=== PATIENT | male | born 1930 | race Caucasian/White ===

== ENCOUNTER 2018-10-22 15:20 | Inpatient (IN) | payer OTHER ==
--- NOTE | 2018-10-22 15:44 | PDOC ---
History of Present Illness - General Stated Complaint: UTI Time Seen by Provider: 10/22/18 15:34 History Source: Patient, Care Home Records - History of Present Illness Initial Comments: 10/22/18 15:38 Pt is an 88yo M with PMH of Prostate Ca s/p seeds, BPH, CHF, COPD, HTN, CKD, HLD , Anemia, Asbestosis, Hypothyroidism BIBA from [facility] for passing blood and clots in urine for one month. Pt states that he has been on antibiotics (Levaquin for one week) and still has blood in the urine. Finished abx 20 days ago. Has bladder incontinence. He was told to come to the ED for failing oral therapy IV antibiotics. He denies dysuria, frequency, flank pain, abdominal pain, lightheadedness, n/v/d, palpitations, chest pain, sob, fevers, chills. CT on 10/08/2018 shows hydronephrosis with bladder wall thickening (done at [facility]) [place] records show cultures growing Morganmorris sensitive to ertapenem, meropenem, gentamycin. PMD: Caty Uro: Ficazolla PMH: see hpi PSH: aortic valve repalcement, L knee surgery Meds: see med rec Allergies: PCN Past History - Past Medical History Allergies/Adverse Reactions: Allergies Allergy/AdvReac Type Severity Reaction Status Date / Time Penicillins Allergy Verified 10/22/18 19:28 Home Medications: Ambulatory Orders Acetaminophen [Tylenol -] 1,000 mg PO BID 10/22/18 Aspirin 81 mg PO DAILY 10/22/18 Ferrous Sulfate 325 mg PO BID 10/22/18 Furosemide [Lasix] 40 mg PO DAILY 10/22/18 Gabapentin 300 mg PO HS 10/22/18 Levothyroxine Sodium [Levo-T] 50 mcg PO DAILY 10/22/18 Loratadine 10 mg PO DAILY PRN 10/22/18 Mirabegron [Myrbetriq] 25 mg PO DAILY 10/22/18 Omeprazole 40 mg PO AM 10/22/18 Simethicone 180 mg PO TID 10/22/18 Tamsulosin HCl 0.4 mg PO DAILY 10/22/18 Review of Systems - Review of Systems Constitutional: No: Chills, Diaphoresis, Fever, Weakness HEENTM: No: Symptoms Reported Respiratory: No: Symptoms reported, Cough, Shortness of Breath Cardiac (ROS): No: Chest Pain ABD/GI: No: Constipated, Diarrhea, Nausea, Vomiting, Abdominal cramping : Yes: See HPI, Hematuria. No: Burning, Dysuria, Flank Pain Musculoskeletal: No: Symptoms Reported Integumentary: No: Symptoms Reported Neurological: No: Symptoms reported *Physical Exam - Physical Exam General Appearance: Yes: Nourished, Appropriately Dressed. No: Apparent Distress HEENT: positive: EOMI, OXANA, Normal ENT Inspection. negative: Pale Conjunctivae Neck: positive: Trachea midline, Supple. negative: Lymphadenopathy (R), Lymphadenopathy (L) Respiratory/Chest: positive: Lungs Clear, Normal Breath Sounds. negative: Crackles, Wheezing Cardiovascular: positive: Regular Rhythm, Regular Rate, S1, S2. negative: Edema , JVD, Murmur Vascular Pulses: Carotid (R): 2+, Carotid (L): 2+, Dorsalis-Pedis (R): 2+, Doralis-Pedis (L): 2+ Gastrointestinal/Abdominal: positive: Normal Bowel Sounds, Soft. negative: Tender Musculoskeletal: negative: CVA Tenderness Extremity: positive: Normal Capillary Refill. negative: Pedal Edema, Swelling, Calf Tenderness Integumentary: positive: Normal Color, Dry, Warm Neurologic: positive: mat inspector II-XII NML intact, Fully Oriented, Alert, Normal Mood/ Affect, Normal Response, Motor Strength 5/5 ED Treatment Course - LABORATORY CBC & Chemistry Diagram: 10/22/18 17:00 10/22/18 17:08 Medical Decision Making - Medical Decision Making 10/23/18 00:42 Pt is an 88yo M with PMH of Prostate Ca s/p seeds, BPH, CHF, COPD, HTN, CKD, HLD , Anemia, Asbestosis, Hypothyroidism BIBA from [facility] for passing blood and clots in urine for one month. Pt states that he has been on antibiotics (Levaquin for one week) and still has blood in the urine. Finished abx 20 days ago. Has bladder incontinence. He was told to come to the ED for failing oral therapy IV antibiotics. He denies dysuria, frequency, flank pain, abdominal pain, lightheadedness, n/v/d, palpitations, chest pain, sob, fevers, chills. CT done 10/08 shows bilateral hydronephrosis with bladder wall thickening. [place] records show cultures growing Morganelli sensitive to ertapenem, meropenem, gentamycin. Vitals: wnl PE benign ddx includes but not limited to cystitis, pyelo, nephrolithiasis, malignancy, electrolyte/metabolic abnormality, ischemia -ua, ucx -labs -bladder us ua positive for infection. pt has pcn allergies. will give ertapenem. will admit for uti. consult for dr. bertrand. 10/23/18 00:44 *DC/Admit/Observation/Transfer Diagnosis at time of Disposition: Hemorrhagic cystitis - Referrals - Patient Instructions - Post Discharge Activity
[2018-10-22 17:32] LABS: BASO % 0.9 % (0-2.0); EOS % 1.6 % (0-4.5); HEMATOCRIT 25.1 % (35.4-49); HEMOGLOBIN 8.3 GM/dL (11.7-16.9); LYMPH % 19.9 % (8-40); MCH 32.2 pg (25.7-33.7); MCHC 33.1 g/dl (32.0-35.9); MEAN CELL VOLUME 97.2 fl (80-96); MEAN PLT VOLUME 6.6 fl (7.5-11.1); MONO % 8.5 % (3.8-10.2); NEUT % 69.1 % (42.8-82.8); PLATELET COUNT 391 K/MM3 (134-434); RBC 2.58 M/mm3 (4.00-5.60); RDW 17.7 % (11.9-15.9); WHITE BLOOD COUNT 7.1 K/mm3 (4.0-10.0)
[2018-10-22 17:48] LABS: INR 1.2 (0.83-1.09); PROTHROMBIN TIME (PATIENT) 14.2 SEC (9.7-13.0)
[2018-10-22 17:49] VITALS: BMI 23.8
[2018-10-22 17:58] LABS: ALBUMIN 2.5 g/dl (3.4-5.0); ALK PHOS 100 U/L (45-117); ANION GAP 6 MMOL/L (8-16); BILIRUBIN,TOTAL 0.2 mg/dL (0.2-1); BLOOD UREA NITROGEN 22 mg/dL (7-18); CALCIUM 8.6 mg/dL (8.5-10.1); CHLORIDE 103 mmol/L (98-107); CO2 29 mmol/L (21-32); CREATININE 1.1 mg/dL (0.55-1.3); GLUCOSE,RANDOM 116 mg/dL (74-106); SGOT/AST 22 U/L (15-37); SGPT/ALT 15 U/L (13-61); SODIUM 138 mmol/L (136-145); TOT PROT 7.6 g/dl (6.4-8.2)
[2018-10-22 19:05] LABS: URINE APPEARANCE Turbid; URINE BILIRUBIN Negative (NEGATIVE); URINE COLOR Red; URINE GLUCOSE (UA) Negative (NEGATIVE); URINE KETONE Negative (NEGATIVE); URINE LEUK ESTERASE 1+ (NEGATIVE); URINE NITRITE Negative (NEGATIVE); URINE PROTEIN 3+ (NEGATIVE); URINE UROBILINOGEN 0.2 mg/dL (0.2-1.0)
[2018-10-22 19:09] LABS: URINE RBC >100 /hpf (0-4)
[2018-10-22 19:10] LABS: URINE BACTERIA MODERATE /hpf (NEGATIVE)
--- NOTE | 2018-10-22 19:21 | PDOC ---
Documentation entered by Stephanie Tariq SCRIBE, acting as scribe for Sergey Cornejo MD. Sergey Cornejo MD: This documentation has been prepared by the Marciano cox Adrianna, SCRIBE, under my direction and personally reviewed by me in its entirety. I confirm that the documentation accurately reflects all work, treatment, procedures, and medical decision making performed by me. Attending Attestation - Resident Resident Name: AnnOfe - ED Attending Attestation I have performed the following: I have examined & evaluated the patient, The case was reviewed & discussed with the resident, I agree w/resident's findings & plan, Exceptions are as noted - HPI HPI: The patient is an 88 year old male, with a significant PMH of prostate CA (s/p seeds), BPH, CHF, COPD, HTN, CKD, HLD, anemia, asbestosis, and hypothyroid, who presents to the emergency department today BIB from [facility] for MDR UTI. Patient notes he was passing blood and clots in his urine for the past month. He reports he was placed on Levaquin one month ago for one week, without any relief of his symptoms. Patient endorses associated urinary incontinence. He notes he was referred to come to the ED for IV antibiotics and cystoscopy. The patient denies chest pain, shortness of breath, headache and dizziness. Denies fever, chills, nausea, vomit, diarrhea and constipation. Denies dysuria, frequency, and flank pain. Allergies: Penicillins Past surgical history: Prostate seed implantations Social history: No reported PCP: Dr. Byrne Urologist: Dr. Diaz Bell 10/22/18 19:40 - Physicial Exam PE: 10/22/18 19:19 agree with resident exam - Medical Decision Making 18:26pm- paged Dr. Bell's call service, advised Dr. Vega is on- call, awaiting call back 18:40pm- resident spoke with Dr. Vega concerning patient's care 10/22/18 18:45 88yo M presents to the ED from [facility] 2/2 MDR UTI. Per review of provided records and conversation with [facility] staff, pt has Morganelli +UCx sensitive UTI Pt send in for IV abx
[2018-10-22] MEDS ORDERED: SODIUM CHLORIDE IVPB ONE ×2 (19:30→19:47)
[2018-10-22] MEDS ORDERED: GENTAMICIN IVPB ONE ×2 (19:30→19:47)
[2018-10-22] MEDS ORDERED: ERTAPENEM SODIUM 1 GM in SODIUM CHLORIDE 50 ML IVPB ONE (19:35)
--- NOTE | 2018-10-22 20:08 | PN ---
Teaching Attending Note Name of Resident: Carey Garg ATTENDING PHYSICIAN STATEMENT I saw and evaluated the patient. I reviewed the resident's note and discussed the case with the resident. I agree with the resident's findings and plan as documented. SUBJECTIVE: Patient is an 88 year old man with a PMH of prostate cancer (s/p seed implants) , BPH, CHF, COPD, HTN, CKD, HLD, anemia, asbestosis, Penicillin allergy and hypothyroid, who presents to the ER from [facility] passing blood and clots in his urine for the past month. Has had MDR UTI. He was placed on Levaquin one month ago for one week, without any relief of his symptoms. Patient has associated urinary incontinence. He notes he was referred to come to the ER for IV antibiotics and cystoscopy. The patient denies chest pain, shortness of breath, headache and dizziness. Denies fever, chills, nausea, vomit, diarrhea,constipation, dysuria or flank pain. OBJECTIVE: Alert Vital Signs Period Temp Pulse Resp BP Sys/Mathis Pulse Ox Last 24 Hr 98.1 F 82 17 113/53 97 HEENT: No Jaundice, eye redness or discharge, PERRLA, EOMI. Normocephalic, atraumatic. External ears are normal and hearing is grossly intact. No nasal discharge. Neck: Supple, nontender. No palpable adenopathy or thyromegaly. No JVD Chest: Good effort. Clear to auscultation and percussion. Heart: Regular. No S3, rub or murmur Abdomen: Not distended, soft, nontender and no HSM. No rebound or guarding. Normal bowel sounds. Ext: Peripheral pulses intact. No leg edema. Skin: Warm and dry. No petechiae or rash. Left leg ecchymosis. Neuro: Alert. Oriented x3. CN 2-12 grossly intact. Sensation grossly intact in all four extremities and DTR are symmetric. Psych: Appropriate mood and affect. Good insight. Current Medications Generic Name Dose Route Start Last Admin Trade Name Freq PRN Reason Stop Dose Admin Gentamicin Sulfate 330 mg/ 258.25 mls @ 100 mls/hr 10/22/18 19:47 Sodium Chloride IVPB 10/22/18 22:04 ONCE ONE Protocol Abnormal Lab Results 10/22/18 10/22/18 10/22/18 17:00 17:08 17:08 RBC 2.58 L Hgb 8.3 L Hct 25.1 L MCV 97.2 H RDW 17.7 H MPV 6.6 L PT with INR 14.20 H INR 1.20 H Anion Gap 6 L BUN 22 H Random Glucose 116 H Albumin 2.5 L Urine Protein Urine Blood Ur Leukocyte Esterase 10/22/18 17:25 RBC Hgb Hct MCV RDW MPV PT with INR INR Anion Gap BUN Random Glucose Albumin Urine Protein 3+ H Urine Blood 3+ H Ur Leukocyte Esterase 1+ H ASSESSMENT AND PLAN: 1. Hematuria/?UTI - Had a recent CT at [facility] showing unexplained hydroureteronephrosis but no identifiable cause for hematuria. Urine culture from 10/14/18 grew Morganella Morganii sensitive to Ertapenem. Treat with Ertapenem. Urology consult. Need to ascertain precise source of hematuria. NPO and IV fluids. Need kidney and bladder sonogram to investigate hematuria. 2. Hypoalbuminemia - Possibly due to combined effects of malnutrition, proteinuria and inflammation associated with comorbid chronic conditions. Will ensure adequate dietary protein intake and also consult orchestra conductor. 3. Low MCV Anemia - Do basic anemia work up including serial stool guaiacs, reticulocyte count and iron studies. Will strive to confirm iron deficiency SONDRA ; then give IV iron and possibly Procrit to preempt blood transfusion. 4. Hypertension - Restart outpatient antihypertensive drugs when clinically appropriate. Nonpharmacologic measures to control hypertension like weight loss , salt restriction and exercise discussed. 5. DVT prophylaxis - SCD, TEDs, Early ambulation. Start Lovenox 40 mg sq q 24 hours after procedure. 6. Advance directives - Full code
--- NOTE | 2018-10-22 21:19 | HP ---
CHIEF COMPLAINT: Gross Hematuria PCP: Dr Byrne HISTORY OF PRESENT ILLNESS: Pt is an 88 y/o gentleman with a significant past medical history of Prostate Cancer (diagnosed [id number]) treated w/ Seeds and Radiation ([facility] , Dr Virgen), BPH, Asbestosis (retired [employer]) CHF, COPD, HTN, HLD, CKD, hypothyroidism, and basal cell carcinoma on back who presented to [facility] due to continued gross hematuria. Pt endorses that he has been suffering from gross hematuria for approximately 1 month duration. Pt states he notices clots in his urine as well. Endorses he has experienced these symptoms in the distant past. Pt is a resident of [facility] in [place]. While at [facility], pt was also being treated with Levaquin for a UTI (UC 10/14/2018 reveals + Janine resistant to Levaquin.) Pt denies any chest pain, shortness of breath, nausea/vomiting/fevers /chills, or dysuria. Pt is incontinent of urine so cannot comment on frequency, urgency, or hesitancy. PMH as noted above Surg Hx- left knee replacement, AVR, Excision of basal cell on back. FH- Father pneumonia, Mother Scleroderma SocialHx- Denies tobacco or alcohol use Allergies: Penicillin ER course was notable for: (1) Urinalysis 3+ Blood (2) Administered Ertapenem and Gentamycin by ED HOME MEDICATIONS: REVIEW OF SYSTEMS CONSTITUTIONAL: Absent: fever, chills, diaphoresis, generalized weakness, malaise, loss of appetite, weight change HEENT: Absent: rhinorrhea, nasal congestion, throat pain, throat swelling, difficulty swallowing, mouth swelling, ear pain, eye pain, visual changes CARDIOVASCULAR: Absent: chest pain, syncope, palpitations, irregular heart rate, lightheadedness , peripheral edema RESPIRATORY: Absent: cough, shortness of breath, dyspnea with exertion, orthopnea, wheezing, stridor, hemoptysis GASTROINTESTINAL: Absent: abdominal pain, abdominal distension, nausea, vomiting, diarrhea, constipation, melena, hematochezia GENITOURINARY: PRESENT: dysuria, hematuria, MUSCULOSKELETAL: Absent: myalgia, arthralgia, joint swelling, back pain, neck pain SKIN: Absent: rash, itching, pallor HEMATOLOGIC/IMMUNOLOGIC: Absent: easy bleeding, easy bruising, lymphadenopathy, frequent infections ENDOCRINE: Absent: unexplained weight gain, unexplained weight loss, heat intolerance, cold intolerance NEUROLOGIC: Absent: headache, focal weakness or paresthesias, dizziness, unsteady gait, seizure, mental status changes, bladder or bowel incontinence PSYCHIATRIC: Absent: anxiety, depression, suicidal or homicidal ideation, hallucinations. PHYSICAL EXAMINATION Vital Signs - 24 hr 10/22/18 15:25 Temperature 98.1 F Pulse Rate 82 Respiratory 17 Rate Blood Pressure 113/53 L O2 Sat by Pulse 97 Oximetry (%) GENERAL: NAD HEAD: Normal with no signs of trauma. EYES: EOMI Sclera Clear EARS, NOSE, THROAT: MMM NECK: Normal range of motion, supple without lymphadenopathy, JVD, or masses. LUNGS: Crackles b/l bases HEART: FOREIGN LUSB and RUSB ABDOMEN: Soft No suprapubic tender. No CVA tenderness. No guarding or rigidity or rebound LOWER EXTREMITIES: No CCE. Echymosis left lower arce. Darkening of right 2nd and 3rd toenails 2/2 mechanical injury. Pulses 2+ NEUROLOGICAL: Cranial nerves II-XII intact. Normal speech. Normal gait. PSYCHIATRIC: Cooperative. Good eye contact. Appropriate mood and affect. SKIN: Warm, dry, normal turgor, no rashes or lesions noted, normal capillary refill. Laboratory Results - last 24 hr 10/22/18 10/22/18 10/22/18 17:00 17:08 17:08 WBC 7.1 RBC 2.58 L Hgb 8.3 L Hct 25.1 L MCV 97.2 H MCH 32.2 MCHC 33.1 RDW 17.7 H Plt Count 391 MPV 6.6 L Absolute Neuts (auto) 4.9 Neutrophils % 69.1 Lymphocytes % 19.9 Monocytes % 8.5 Eosinophils % 1.6 Basophils % 0.9 Nucleated RBC % 0 PT with INR 14.20 H INR 1.20 H Sodium 138 Potassium 4.0 Chloride 103 Carbon Dioxide 29 Anion Gap 6 L BUN 22 H Creatinine 1.1 Creat Clearance w eGFR 63.47 Random Glucose 116 H Calcium 8.6 Total Bilirubin 0.2 AST 22 ALT 15 Alkaline Phosphatase 100 Total Protein 7.6 Albumin 2.5 L Urine Color Urine Appearance Urine pH Ur Specific [place] Urine Protein Urine Glucose (UA) Urine Ketones Urine Blood Urine Nitrite Urine Bilirubin Urine Urobilinogen Ur Leukocyte Esterase Urine WBC (Auto) Urine RBC (Auto) U Epithel Cells (Auto) Urine Bacteria (Auto) Blood Type Antibody Screen 10/22/18 10/22/18 17:08 17:25 WBC RBC Hgb Hct MCV MCH MCHC RDW Plt Count MPV Absolute Neuts (auto) Neutrophils % Lymphocytes % Monocytes % Eosinophils % Basophils % Nucleated RBC % PT with INR INR Sodium Potassium Chloride Carbon Dioxide Anion Gap BUN Creatinine Creat Clearance w eGFR Random Glucose Calcium Total Bilirubin AST ALT Alkaline Phosphatase Total Protein Albumin Urine Color Red Urine Appearance Turbid Urine pH 6.0 Ur Specific [place] 1.020 Urine Protein 3+ H Urine Glucose (UA) Negative Urine Ketones Negative Urine Blood 3+ H Urine Nitrite Negative Urine Bilirubin Negative Urine Urobilinogen 0.2 Ur Leukocyte Esterase 1+ H Urine WBC (Auto) 5-10 Urine RBC (Auto) >100 U Epithel Cells (Auto) 2-5 Urine Bacteria (Auto) Moderate Blood Type A POSITIVE Antibody Screen Negative ASSESSMENT/PLAN: Pt is an 88 y/o gentleman with a significant past medical history of Prostate Cancer (diagnosed [phone]) treated w/ Seeds and Radiation ([facility] , Dr Virgen), BPH, Asbestosis (retired [employer]) CHF, COPD, HTN, HLD, CKD, hypothyroidism, and basal cell carcinoma on back who presented to [facility] due to continued gross hematuria. #Gross Hematuria -Urinalysis 3+ blood, also appearance of julianne blood in diaper and h/o clots in [place] -Urology on board. Plan for cystoscopy tomorrow. NPO after Midnight. - H/H 8.3/25.1. Will order iron studies. Administer I.V iron if needed. -Pelvic/Bladder Sono CTAP performed at [facility] this month. " Bilateral chronic hydroureteronephrosis, moderate on the right and left, down to the level of the bladder. Right ureter markedly dilated measuring 2.6 cm in widest diameter. No stones appreciated." #MDR UTI -Urine Culture 10/14/2018--> Morganella+ -Will continue on Ertapenem 500 mg daily in light of calculated CrCL of 21 according to [facility]. -ID Consult -UC pending #HTN Pt reportedly hypertensive but not on any antihypertensives medications per [place]. Pt relatively hypotensive. Continue to monitor and assess need for hypertensives. #COPD Per [facility] records, no COPD medication listed. Will monitor for signs and symptoms. #FEN LR@75cc/hr Monitor Electrolytes Low Sodium Diet #DVT ppx: SCDs in light of gross hematuria #Dispo: Med-Surg Visit type - Emergency Visit Emergency Visit: Yes ED Registration Date: 10/22/18 Care time: The patient presented to the Emergency Department on the above date and was hospitalized for further evaluation of their emergent condition. - New Patient This patient is new to me today: Yes Date on this admission: 10/23/18 - Critical Care Critical Care patient: No
[2018-10-22] MEDS ORDERED: LORATADINE 10 MG TABLET PO PRN (23:59)
[2018-10-23] MEDS: SIMETHICONE 80 MG TAB.CHEW (FP) PO SCH ×3 (05:52→21:53)
[2018-10-23] MEDS: PANTOPRAZOLE 40 MG TABLET (FP) PO SCH (06:05)
[2018-10-23] MEDS: LEVOTHYROXINE NA 50 MCG TABLET (FP) PO SCH (06:05)
[2018-10-23] MEDS: LACTATED RINGERS SOLUTION 1,000 ML/1,000 ML INFUS.BAG IV SCH (07:00)
[2018-10-23 07:24] LABS: EOS % 1.9 % (0-4.5); HEMATOCRIT 25.6 % (35.4-49); HEMOGLOBIN 8.4 GM/dL (11.7-16.9); LYMPH % 19.7 % (8-40); MCH 31.6 pg (25.7-33.7); MCHC 32.6 g/dl (32.0-35.9); MEAN PLT VOLUME 6.9 fl (7.5-11.1); NEUT % 69.4 % (42.8-82.8); PLATELET COUNT 393 K/MM3 (134-434); RBC 2.64 M/mm3 (4.00-5.60); RDW 18.1 % (11.9-15.9); WHITE BLOOD COUNT 6.7 K/mm3 (4.0-10.0)
[2018-10-23 07:37] LABS: INR 1.18 (0.83-1.09); PROTHROMBIN TIME (PATIENT) 13.9 SEC (9.7-13.0)
[2018-10-23 07:39] LABS: ACTIVATED PTT 35.7 SECONDS (25.2-36.5)
[2018-10-23 07:55] LABS: ALBUMIN 2.4 g/dl (3.4-5.0); ALK PHOS 90 U/L (45-117); ANION GAP 6 MMOL/L (8-16); BILIRUBIN,TOTAL 0.3 mg/dL (0.2-1); BLOOD UREA NITROGEN 22 mg/dL (7-18); CALCIUM 8.8 mg/dL (8.5-10.1); CHLORIDE 105 mmol/L (98-107); CO2 28 mmol/L (21-32); CREATININE 1.1 mg/dL (0.55-1.3); GLUCOSE,RANDOM 94 mg/dL (74-106); MAGNESIUM 1.6 mg/dL (1.8-2.4); PHOSPHOROUS 3.2 mg/dL (2.5-4.9); POTASSIUM 3.7 mmol/L (3.5-5.1); SGOT/AST 18 U/L (15-37); SGPT/ALT 14 U/L (13-61); SODIUM 139 mmol/L (136-145)
[2018-10-23] MEDS ORDERED: MAGNESIUM SULF 50% (8.12 MEQ/2 ML-1 GM VIAL) IVPB ONE (08:11)
[2018-10-23] MEDS ORDERED: PATIENT'S OWN MEDICATION (NON-FORMULARY) (Mirabegron [Myrbetriq] 25 MG) PO SCH (10:00)
[2018-10-23] MEDS: ACETAMINOPHEN 500 MG TABLET (FP) PO SCH ×2 (10:57→21:53)
[2018-10-23] MEDS: FERROUS SO4 325 MG TABLET (FP) PO SCH ×2 (10:58→21:53)
--- NOTE | 2018-10-23 11:24 | EKG ---
Test Reason : Blood Pressure : / mmHG Vent. Rate : 089 BPM Atrial Rate : 089 BPM P-R Int : 188 ms QRS Dur : 080 ms QT Int : 378 ms P-R-T Axes : 037 063 006 degrees QTc Int : 459 ms SINUS RHYTHM WITH PREMATURE ATRIAL COMPLEXES LOW VOLTAGE QRS BORDERLINE ECG NO PREVIOUS ECGS AVAILABLE Confirmed by MARIA ISABEL BOLAÑOS MD ([id number]) on 10/23/2018 11:24:31 AM Referred By: Confirmed By:MARIA ISABEL BOLAÑOS MD
--- NOTE | 2018-10-23 13:36 | PN ---
Physical Exam: SUBJECTIVE: Patient seen and examined. Pt. endorses resolving hematuria, states there is decreased pain on urination. OBJECTIVE: Vital Signs Period Temp Pulse Resp BP Sys/Mathis Pulse Ox Last 24 Hr 98 F-98.4 F 82-88 17-18 102-113/48-56 95-100 GENERAL: The patient is awake, alert, and fully oriented, in no acute distress. HEAD: Normal with no signs of trauma. EYES: Sclera anicteric, conjunctiva clear. ENT: Ears normal, nares patent,moist mucous membranes. LUNGS: Breath sounds equal, clear to auscultation bilaterally, no wheezes, no crackles, no accessory muscle use. HEART: Regular rate and rhythm, S1, S2 without murmur ABDOMEN: Soft, nontender, nondistended, normoactive bowel sounds, no guarding, no rebound EXTREMITIES: 2+ radial pulses, warm, no calf tenderness, well-perfused, no edema. NEUROLOGICAL: Normal speech, gait not observed. PSYCH: Normal mood, normal affect. SKIN: Warm, dry, normal turgor, no rashes or lesions noted Laboratory Results - last 24 hr 10/22/18 10/22/18 10/22/18 17:00 17:08 17:08 WBC 7.1 RBC 2.58 L Hgb 8.3 L Hct 25.1 L MCV 97.2 H MCH 32.2 MCHC 33.1 RDW 17.7 H Plt Count 391 MPV 6.6 L Absolute Neuts (auto) 4.9 Neutrophils % 69.1 Lymphocytes % 19.9 Monocytes % 8.5 Eosinophils % 1.6 Basophils % 0.9 Nucleated RBC % 0 Retic Count PT with INR 14.20 H INR 1.20 H PTT (Actin FS) Sodium 138 Potassium 4.0 Chloride 103 Carbon Dioxide 29 Anion Gap 6 L BUN 22 H Creatinine 1.1 Creat Clearance w eGFR 63.47 Random Glucose 116 H Calcium 8.6 Phosphorus Magnesium Ferritin 194.6 Total Bilirubin 0.2 AST 22 ALT 15 Alkaline Phosphatase 100 Total Protein 7.6 Albumin 2.5 L Urine Color Urine Appearance Urine pH Ur Specific [place] Urine Protein Urine Glucose (UA) Urine Ketones Urine Blood Urine Nitrite Urine Bilirubin Urine Urobilinogen Ur Leukocyte Esterase Urine WBC (Auto) Urine RBC (Auto) U Epithel Cells (Auto) Urine Bacteria (Auto) Blood Type Antibody Screen 10/22/18 10/22/18 10/23/18 17:08 17:25 06:30 WBC RBC Hgb Hct MCV MCH MCHC RDW Plt Count MPV Absolute Neuts (auto) Neutrophils % Lymphocytes % Monocytes % Eosinophils % Basophils % Nucleated RBC % Retic Count 3.69 H PT with INR INR PTT (Actin FS) Sodium Potassium Chloride Carbon Dioxide Anion Gap BUN Creatinine Creat Clearance w eGFR Random Glucose Calcium Phosphorus Magnesium Ferritin Total Bilirubin AST ALT Alkaline Phosphatase Total Protein Albumin Urine Color Red Urine Appearance Turbid Urine pH 6.0 Ur Specific [place] 1.020 Urine Protein 3+ H Urine Glucose (UA) Negative Urine Ketones Negative Urine Blood 3+ H Urine Nitrite Negative Urine Bilirubin Negative Urine Urobilinogen 0.2 Ur Leukocyte Esterase 1+ H Urine WBC (Auto) 5-10 Urine RBC (Auto) >100 U Epithel Cells (Auto) 2-5 Urine Bacteria (Auto) Moderate Blood Type A POSITIVE Antibody Screen Negative 10/23/18 10/23/18 10/23/18 06:30 06:30 06:30 WBC 6.7 RBC 2.64 L Hgb 8.4 L Hct 25.6 L MCV 97.0 H MCH 31.6 MCHC 32.6 RDW 18.1 H Plt Count 393 MPV 6.9 L Absolute Neuts (auto) 4.7 Neutrophils % 69.4 Lymphocytes % 19.7 Monocytes % 8.0 Eosinophils % 1.9 Basophils % 1.0 Nucleated RBC % 0 Retic Count PT with INR 13.90 H INR 1.18 H PTT (Actin FS) 35.7 Sodium 139 Potassium 3.7 Chloride 105 Carbon Dioxide 28 Anion Gap 6 L BUN 22 H Creatinine 1.1 Creat Clearance w eGFR 63.47 Random Glucose 94 Calcium 8.8 Phosphorus 3.2 Magnesium 1.6 L Ferritin Total Bilirubin 0.3 AST 18 ALT 14 Alkaline Phosphatase 90 Total Protein 7.0 Albumin 2.4 L Urine Color Urine Appearance Urine pH Ur Specific [place] Urine Protein Urine Glucose (UA) Urine Ketones Urine Blood Urine Nitrite Urine Bilirubin Urine Urobilinogen Ur Leukocyte Esterase Urine WBC (Auto) Urine RBC (Auto) U Epithel Cells (Auto) Urine Bacteria (Auto) Blood Type Antibody Screen 10/23/18 06:30 WBC RBC Hgb Hct MCV MCH MCHC RDW Plt Count MPV Absolute Neuts (auto) Neutrophils % Lymphocytes % Monocytes % Eosinophils % Basophils % Nucleated RBC % Retic Count PT with INR INR PTT (Actin FS) Sodium Potassium Chloride Carbon Dioxide Anion Gap BUN Creatinine Creat Clearance w eGFR Random Glucose Calcium Phosphorus Magnesium Ferritin Total Bilirubin AST ALT Alkaline Phosphatase Total Protein Albumin Urine Color Urine Appearance Urine pH Ur Specific [place] Urine Protein Urine Glucose (UA) Urine Ketones Urine Blood Urine Nitrite Urine Bilirubin Urine Urobilinogen Ur Leukocyte Esterase Urine WBC (Auto) Urine RBC (Auto) U Epithel Cells (Auto) Urine Bacteria (Auto) Blood Type A POSITIVE Antibody Screen Negative Active Medications Home Medications Medication Instructions Recorded Acetaminophen [Tylenol -] 1,000 mg PO BID 10/22/18 Aspirin 81 mg PO DAILY 10/22/18 Ferrous Sulfate 325 mg PO BID 10/22/18 Furosemide [Lasix] 40 mg PO DAILY 10/22/18 Gabapentin 300 mg PO HS 10/22/18 Levothyroxine Sodium [Levo-T] 50 mcg PO DAILY 10/22/18 Loratadine 10 mg PO DAILY PRN 10/22/18 Mirabegron [Myrbetriq] 25 mg PO DAILY 10/22/18 Omeprazole 40 mg PO AM 10/22/18 Simethicone 180 mg PO TID 10/22/18 Tamsulosin HCl 0.4 mg PO DAILY 10/22/18 [place]-3 Acid Ethyl Esters [Lovaza 1,000 mg PO DAILY 10/23/18 -] Current Medications Acetaminophen (Tylenol -) 1,000 mg PO BID [facility] Last Admin: 10/23/18 10:57 Dose: Not Given Ferrous Sulfate (Feosol -) 325 mg PO BID [facility] Last Admin: 10/23/18 10:58 Dose: Not Given Furosemide (Lasix -) 40 mg PO DAILY [facility] Gabapentin (Neurontin -) 300 mg PO HS [facility] Ertapenem 0.5 gm/ Sodium (Chloride) 50 mls @ 100 mls/hr IVPB DAILY [facility] Lactated Ringer's (Lactated Ringers Solution) 1,000 ml in 1,000 mls @ 42 mls/ hr IV ASDIR [facility] Last Admin: 10/23/18 07:00 Dose: 42 mls/hr Meropenem 1 gm/ Dextrose 100 mls @ 200 mls/hr IVPB Q8H-IV [facility] Levothyroxine Sodium (Synthroid -) 50 mcg PO DAILY@0700 [facility] Last Admin: 10/23/18 06:05 Dose: 50 mcg Loratadine (Claritin -) 10 mg PO DAILY PRN PRN Reason: ALLERGIES Non-Formulary Medication (Mirabegron [Myrbetriq]) 25 mg PO DAILY [facility] Pantoprazole Sodium (Protonix -) 40 mg PO AM [facility] Last Admin: 10/23/18 06:05 Dose: 40 mg Simethicone (Mylicon -) 160 mg PO TID [facility] Last Admin: 10/23/18 05:52 Dose: 160 mg Tamsulosin HCl (Flomax -) 0.4 mg PO DAILY@0830 [facility] ASSESSMENT/PLAN: Pt is an 88 y.o. M w/ PMHx. of Prostate Cancer (diagnosed [id number]) treated w/ Seeds and Radiation ([facility], Dr Virgen), BPH, Asbestosis (retired [employer]) CHF, COPD, HTN, HLD, CKD, hypothyroidism, and basal cell carcinoma on back who presented to [facility] due to continued gross hematuria. #Gross Hematuria Urinalysis 3+ blood, also appearance of julianne blood in diaper and h/o clots in [place] Urology on board. Plan for cystoscopy tomorrow. NPO after Midnight. H/H 8.3/25.1, trend Pelvic/Bladder US: CTAP performed at [facility] this month. " Bilateral chronic hydroureteronephrosis, moderate on the right and left, down to the level of the bladder. Right ureter markedly dilated measuring 2.6 cm in widest diameter. No stones appreciated." #MDR UTI Urine Culture 10/14/2018--> Morganella+ Will continue on Ertapenem 500 mg daily in light of calculated CrCL of 21 according to [facility]. ID Consult f/u [facility]. #FEN LR@75cc/hr Monitor Electrolytes Low Sodium Diet #DVT ppx: SCDs in light of gross hematuria #Dispo: Med-Surg Visit type - Emergency Visit Emergency Visit: Yes ED Registration Date: 10/22/18 Care time: The patient presented to the Emergency Department on the above date and was hospitalized for further evaluation of their emergent condition. - New Patient This patient is new to me today: Yes Date on this admission: 10/26/18 - Critical Care Critical Care patient: No - Discharge Referral Referred to [facility] No
--- NOTE | 2018-10-23 14:34 | CON.ID ---
Consult - Alcohol/Substance Use Hx Alcohol Use: No - Smoking History Smoking history: Never smoked Have you smoked in the past 12 months: No Home Medications - Allergies Allergies/Adverse Reactions: Allergies Allergy/AdvReac Type Severity Reaction Status Date / Time Penicillins Allergy Verified 10/22/18 19:28 - Home Medications Home Medications: Ambulatory Orders Acetaminophen [Tylenol -] 1,000 mg PO BID 10/22/18 Aspirin 81 mg PO DAILY 10/22/18 Ferrous Sulfate 325 mg PO BID 10/22/18 Furosemide [Lasix] 40 mg PO DAILY 10/22/18 Gabapentin 300 mg PO HS 10/22/18 Levothyroxine Sodium [Levo-T] 50 mcg PO DAILY 10/22/18 Loratadine 10 mg PO DAILY PRN 10/22/18 Mirabegron [Myrbetriq] 25 mg PO DAILY 10/22/18 Omeprazole 40 mg PO AM 10/22/18 Simethicone 180 mg PO TID 10/22/18 Tamsulosin HCl 0.4 mg PO DAILY 10/22/18 [place]-3 Acid Ethyl Esters [Lovaza -] 1,000 mg PO DAILY 10/23/18 Physical Exam Vital Signs: Vital Signs Temperature 97.9 F 10/23/18 14:06 Pulse Rate 79 10/23/18 14:06 Respiratory Rate 20 10/23/18 14:06 Blood Pressure 128/65 10/23/18 14:06 O2 Sat by Pulse Oximetry (%) 95 10/23/18 09:00 Labs: CBC, BMP 10/23/18 06:30 10/23/18 06:30
[2018-10-23] MEDS ORDERED: PT OWN MED DRAWER 7, Y5N ONE (15:08)
--- NOTE | 2018-10-23 16:25 | PN ---
Teaching Attending Note Name of Resident: Sander Xie ATTENDING PHYSICIAN STATEMENT I saw and evaluated the patient. I reviewed the resident's note and discussed the case with the resident. I agree with the resident's findings and plan as documented. SUBJECTIVE: Hematuria. No dysuria. No fever/chills. No nausea/vomiting. No abdominal/flank pain. OBJECTIVE: Afebrile, Hemodynamically Stable. Last Vital Signs Temp Pulse Resp BP Pulse Ox 97.9 F 79 20 128/65 95 10/23/18 14:06 10/23/18 14:06 10/23/18 14:06 10/23/18 14:06 10/23/18 09:00 HEENT - Atraumatic, Normocephalic. Heart - S1, S2, RRR Lungs - clear to auscultation Abdomen - Soft, non-tender. Bowel Sounds normal. Extremities - no edema. Laboratory Results - last 24 hr 10/22/18 10/22/18 10/22/18 17:00 17:08 17:08 WBC 7.1 RBC 2.58 L Hgb 8.3 L Hct 25.1 L MCV 97.2 H MCH 32.2 MCHC 33.1 RDW 17.7 H Plt Count 391 MPV 6.6 L Absolute Neuts (auto) 4.9 Neutrophils % 69.1 Lymphocytes % 19.9 Monocytes % 8.5 Eosinophils % 1.6 Basophils % 0.9 Nucleated RBC % 0 Retic Count PT with INR 14.20 H INR 1.20 H PTT (Actin FS) Sodium 138 Potassium 4.0 Chloride 103 Carbon Dioxide 29 Anion Gap 6 L BUN 22 H Creatinine 1.1 Creat Clearance w eGFR 63.47 Random Glucose 116 H Calcium 8.6 Phosphorus Magnesium Ferritin 194.6 Total Bilirubin 0.2 AST 22 ALT 15 Alkaline Phosphatase 100 Total Protein 7.6 Albumin 2.5 L Urine Color Urine Appearance Urine pH Ur Specific [place] Urine Protein Urine Glucose (UA) Urine Ketones Urine Blood Urine Nitrite Urine Bilirubin Urine Urobilinogen Ur Leukocyte Esterase Urine WBC (Auto) Urine RBC (Auto) U Epithel Cells (Auto) Urine Bacteria (Auto) Blood Type Antibody Screen 10/22/18 10/22/18 10/23/18 17:08 17:25 06:30 WBC RBC Hgb Hct MCV MCH MCHC RDW Plt Count MPV Absolute Neuts (auto) Neutrophils % Lymphocytes % Monocytes % Eosinophils % Basophils % Nucleated RBC % Retic Count 3.69 H PT with INR INR PTT (Actin FS) Sodium Potassium Chloride Carbon Dioxide Anion Gap BUN Creatinine Creat Clearance w eGFR Random Glucose Calcium Phosphorus Magnesium Ferritin Total Bilirubin AST ALT Alkaline Phosphatase Total Protein Albumin Urine Color Red Urine Appearance Turbid Urine pH 6.0 Ur Specific [place] 1.020 Urine Protein 3+ H Urine Glucose (UA) Negative Urine Ketones Negative Urine Blood 3+ H Urine Nitrite Negative Urine Bilirubin Negative Urine Urobilinogen 0.2 Ur Leukocyte Esterase 1+ H Urine WBC (Auto) 5-10 Urine RBC (Auto) >100 U Epithel Cells (Auto) 2-5 Urine Bacteria (Auto) Moderate Blood Type A POSITIVE Antibody Screen Negative 10/23/18 10/23/18 10/23/18 06:30 06:30 06:30 WBC 6.7 RBC 2.64 L Hgb 8.4 L Hct 25.6 L MCV 97.0 H MCH 31.6 MCHC 32.6 RDW 18.1 H Plt Count 393 MPV 6.9 L Absolute Neuts (auto) 4.7 Neutrophils % 69.4 Lymphocytes % 19.7 Monocytes % 8.0 Eosinophils % 1.9 Basophils % 1.0 Nucleated RBC % 0 Retic Count PT with INR 13.90 H INR 1.18 H PTT (Actin FS) 35.7 Sodium 139 Potassium 3.7 Chloride 105 Carbon Dioxide 28 Anion Gap 6 L BUN 22 H Creatinine 1.1 Creat Clearance w eGFR 63.47 Random Glucose 94 Calcium 8.8 Phosphorus 3.2 Magnesium 1.6 L Ferritin Total Bilirubin 0.3 AST 18 ALT 14 Alkaline Phosphatase 90 Total Protein 7.0 Albumin 2.4 L Urine Color Urine Appearance Urine pH Ur Specific [place] Urine Protein Urine Glucose (UA) Urine Ketones Urine Blood Urine Nitrite Urine Bilirubin Urine Urobilinogen Ur Leukocyte Esterase Urine WBC (Auto) Urine RBC (Auto) U Epithel Cells (Auto) Urine Bacteria (Auto) Blood Type Antibody Screen 10/23/18 06:30 WBC RBC Hgb Hct MCV MCH MCHC RDW Plt Count MPV Absolute Neuts (auto) Neutrophils % Lymphocytes % Monocytes % Eosinophils % Basophils % Nucleated RBC % Retic Count PT with INR INR PTT (Actin FS) Sodium Potassium Chloride Carbon Dioxide Anion Gap BUN Creatinine Creat Clearance w eGFR Random Glucose Calcium Phosphorus Magnesium Ferritin Total Bilirubin AST ALT Alkaline Phosphatase Total Protein Albumin Urine Color Urine Appearance Urine pH Ur Specific [place] Urine Protein Urine Glucose (UA) Urine Ketones Urine Blood Urine Nitrite Urine Bilirubin Urine Urobilinogen Ur Leukocyte Esterase Urine WBC (Auto) Urine RBC (Auto) U Epithel Cells (Auto) Urine Bacteria (Auto) Blood Type A POSITIVE Antibody Screen Negative Current Medications Generic Name Dose Route Start Last Admin Trade Name Freq PRN Reason Stop Dose Admin Acetaminophen 1,000 mg 10/23/18 10:00 10/23/18 10:57 Tylenol - PO Not Given BID [facility] Ferrous Sulfate 325 mg 10/23/18 10:00 10/23/18 10:58 Feosol - PO Not Given BID [facility] Furosemide 40 mg 10/23/18 10:00 Lasix - PO DAILY [facility] Gabapentin 300 mg 10/23/18 22:00 Neurontin - PO HS [facility] Ertapenem 0.5 gm/ Sodium 50 mls @ 100 mls/hr 10/23/18 20:00 Chloride IVPB DAILY [facility] Lactated Ringer's 1,000 ml in 1,000 mls @ 42 mls/hr 10/23/18 06:45 10/23/18 07:00 Lactated Ringers Solution IV 42 mls/hr ASDIR [facility] Administration Meropenem 1 gm/ Dextrose 100 mls @ 200 mls/hr 10/23/18 18:00 IVPB Q8H-IV [facility] Levothyroxine Sodium 50 mcg 10/23/18 07:00 10/23/18 06:05 Synthroid - PO 50 mcg DAILY@0700 [facility] Administration Loratadine 10 mg 10/22/18 23:59 Claritin - PO DAILY PRN ALLERGIES Non-Formulary Medication 25 mg 10/23/18 10:00 Mirabegron [Myrbetriq] PO DAILY [facility] Pantoprazole Sodium 40 mg 10/23/18 07:00 10/23/18 06:05 Protonix - PO 40 mg AM [facility] Administration Simethicone 160 mg 10/23/18 06:00 10/23/18 05:52 Mylicon - PO 160 mg TID [facility] Administration Tamsulosin HCl 0.4 mg 10/23/18 08:30 Flomax - PO DAILY@0830 [facility] Home Medications Medication Instructions Recorded Acetaminophen [Tylenol -] 1,000 mg PO BID 10/22/18 Aspirin 81 mg PO DAILY 10/22/18 Ferrous Sulfate 325 mg PO BID 10/22/18 Furosemide [Lasix] 40 mg PO DAILY 10/22/18 Gabapentin 300 mg PO HS 10/22/18 Levothyroxine Sodium [Levo-T] 50 mcg PO DAILY 10/22/18 Loratadine 10 mg PO DAILY PRN 10/22/18 Mirabegron [Myrbetriq] 25 mg PO DAILY 10/22/18 Omeprazole 40 mg PO AM 10/22/18 Simethicone 180 mg PO TID 10/22/18 Tamsulosin HCl 0.4 mg PO DAILY 10/22/18 [place]-3 Acid Ethyl Esters [Lovaza 1,000 mg PO DAILY 10/23/18 -] ASSESSMENT AND PLAN: 88 year old male with Prostate Cancer s/p RTx with Seeds, BPH, GERD, Asbestosis , COPD, HTN, HLD, Hypothyroidism, BCC on Back, CHF, urinary incontinence, presented with 1 month history of gross hematuria. 1. Anemia ? Baseline H/H ? Acute on Chronic Blood Loss secondary to Hematuria H/H 8.10/22.6 - will monitor. MCV 97 - will send Anemia work-up. Already on Iron Supplementation. CTAP [facility] - Bilateral chronic hydroureteronephrosis, moderate on the right and left, down to the level of the bladder. Right ureter markedly dilated measuring 2.6 cm in widest diameter. No stones appreciated. Bladder US - large post-void residual. Urology eval for Cystoscopy Hx BPH - Continue Tamsulosin, Myrbetriq 2. UTI Prior Urine Cx - Morganella Continue Ertapenem (PCN Allergy), pending Urine Cx results. ID Consulted. 3. HTN - not on medications - BP at target. 4. Hx COPD - no evidence of exacerbation. 5. Hypomagnesemia - repleted. 6. Chronic CHF (?diastolic versus systolic, no Echo at [facility]) - normally on Lasix. 7. Hypothyroidism - continue Levothyroxine. 8. GERD - Continue PPI DVT Px - SCDs (no Heparin given Hematuria).
--- NOTE | 2018-10-23 17:43 | CON.GU ---
Consult Consult Specialty:: Referred by:: medicine Reason for Consultation:: hematuria - History of Present Illness Chief Complaint: hematuria,. UTI History of Present Illness: 88 year old male who see Dr. Bell in the office who was undergonig a work up for hematuria and was found to have a multi drug resistant UTI. The [facility] sent the patient to [facility] and he was admitted. He is comfortable and voiding. - History Source History Provided By: Patient Limitations to Obtaining History: No Limitations - Past Medical History Renal/: Yes: BPH, Hematuria, UTI - Alcohol/Substance Use Hx Alcohol Use: No - Smoking History Smoking history: Never smoked Have you smoked in the past 12 months: No Home Medications - Allergies Allergies/Adverse Reactions: Allergies Allergy/AdvReac Type Severity Reaction Status Date / Time Penicillins Allergy Verified 10/22/18 19:28 - Home Medications Home Medications: Ambulatory Orders Acetaminophen [Tylenol -] 1,000 mg PO BID 10/22/18 Aspirin 81 mg PO DAILY 10/22/18 Ferrous Sulfate 325 mg PO BID 10/22/18 Furosemide [Lasix] 40 mg PO DAILY 10/22/18 Gabapentin 300 mg PO HS 10/22/18 Levothyroxine Sodium [Levo-T] 50 mcg PO DAILY 10/22/18 Loratadine 10 mg PO DAILY PRN 10/22/18 Mirabegron [Myrbetriq] 25 mg PO DAILY 10/22/18 Omeprazole 40 mg PO AM 10/22/18 Simethicone 180 mg PO TID 10/22/18 Tamsulosin HCl 0.4 mg PO DAILY 10/22/18 [place]-3 Acid Ethyl Esters [Lovaza -] 1,000 mg PO DAILY 10/23/18 Review of Systems - Review of Systems Genitourinary: reports: Dysuria, Hematuria Physical Exam- Vital Signs: Vital Signs Temperature 97.9 F 10/23/18 14:06 Pulse Rate 79 10/23/18 14:06 Respiratory Rate 20 10/23/18 14:06 Blood Pressure 128/65 10/23/18 14:06 O2 Sat by Pulse Oximetry (%) 95 10/23/18 09:00 Constitutional: Yes: Well Nourished, No Distress, Calm Renal/: Yes: Hematuria. No: Bladder Distention, CVA Tenderness - Left, CVA Tenderness - Right, Linder Present Labs: CBC, BMP 10/23/18 06:30 10/23/18 06:30 Problem List - Problems (1) Hemorrhagic cystitis Assessment/Plan: patient is voiding and hematuria is resolving. patient needs to have urine clear prior to a safe cystoscopy. ok to discharge and follow up in office or hold until next week for cystoscopy if needed. Code(s): N30.91 - CYSTITIS, UNSPECIFIED WITH HEMATURIA
[2018-10-23] MEDS: TAMSULOSIN HCL 0.4 MG CAP PO SCH (17:50)
[2018-10-23] MEDS ORDERED: MEROPENEM 1 GM VIAL (RESTRICTED TO ID) IVPB ONE (17:55)
[2018-10-23] MEDS ORDERED: DEXTROSE 5%-WATER 100 ML IVPB ONE (17:56)
[2018-10-23] MEDS: MEROPENEM 1 GM in DEXTROSE 5%-WATER 100 ML IVPB SCH (17:57)
[2018-10-23] MEDS: FUROSEMIDE 40 MG TABLET (FP) PO SCH (18:03)
[2018-10-23] MEDS ORDERED: ERTAPENEM SODIUM 0.5 GM in SODIUM CHLORIDE 50 ML IVPB SCH (20:00)
[2018-10-23] MEDS: GABAPENTIN 300 MG CAPSULE (FP) PO SCH (21:53)
[2018-10-24] MEDS ORDERED: DEXTROSE 5%-WATER 100 ML IVPB ONE ×3 (01:46→18:12)
[2018-10-24] MEDS ORDERED: MEROPENEM 1 GM VIAL (RESTRICTED TO ID) IVPB ONE ×3 (01:46→18:11)
[2018-10-24] MEDS: MEROPENEM 1 GM in DEXTROSE 5%-WATER 100 ML IVPB SCH ×3 (01:50→18:15)
[2018-10-24 04:11] LABS: SERUM IRON SATURATION 14 % (15-55); TOTAL IRON BINDING CAPACITY 247 ug/dL (250-450); UIBC 212 ug/dL (111-343)
[2018-10-24] MEDS: SIMETHICONE 80 MG TAB.CHEW (FP) PO SCH ×3 (05:58→22:07)
[2018-10-24] MEDS: LACTATED RINGERS SOLUTION 1,000 ML/1,000 ML INFUS.BAG IV SCH (06:01)
[2018-10-24] MEDS: LEVOTHYROXINE NA 50 MCG TABLET (FP) PO SCH (06:01)
[2018-10-24] MEDS: PANTOPRAZOLE 40 MG TABLET (FP) PO SCH (06:05)
[2018-10-24] MEDS: FERROUS SO4 325 MG TABLET (FP) PO SCH ×2 (10:35→22:07)
[2018-10-24 10:36] LABS: BASO % 0.9 % (0-2.0); HEMOGLOBIN 8.7 GM/dL (11.7-16.9); LYMPH % 14.7 % (8-40); MCH 32.4 pg (25.7-33.7); MCHC 33.6 g/dl (32.0-35.9); MEAN CELL VOLUME 96.6 fl (80-96); MEAN PLT VOLUME 6.7 fl (7.5-11.1); MONO % 8.9 % (3.8-10.2); NEUT % 73.5 % (42.8-82.8); PLATELET COUNT 397 K/MM3 (134-434); RDW 18.1 % (11.9-15.9); WHITE BLOOD COUNT 6.2 K/mm3 (4.0-10.0)
[2018-10-24] MEDS: TAMSULOSIN HCL 0.4 MG CAP PO SCH (10:36)
[2018-10-24] MEDS: FUROSEMIDE 40 MG TABLET (FP) PO SCH (10:36)
[2018-10-24] MEDS: ACETAMINOPHEN 500 MG TABLET (FP) PO SCH ×2 (10:37→22:07)
[2018-10-24 11:08] LABS: ANION GAP 5 MMOL/L (8-16); BLOOD UREA NITROGEN 17 mg/dL (7-18); CALCIUM 8.6 mg/dL (8.5-10.1); CHLORIDE 102 mmol/L (98-107); CO2 29 mmol/L (21-32); CREATININE 1.1 mg/dL (0.55-1.3); GLUCOSE,RANDOM 123 mg/dL (74-106); MAGNESIUM 2.2 mg/dL (1.8-2.4); POTASSIUM 4.2 mmol/L (3.5-5.1); SODIUM 136 mmol/L (136-145)
--- NOTE | 2018-10-24 12:16 | DS ---
Physical Exam: SUBJECTIVE: Patient seen and examined at bedside. states that he still has hematuria that has improved. Denies any pain OBJECTIVE: Vital Signs Period Temp Pulse Resp BP Sys/Mathis Pulse Ox Last 24 Hr 97.8 F-98.2 F 69-83 18-20 111-130/58-66 94-94 PHYSICAL EXAM GENERAL: A&Ox3, no acute distress EYES: PERRLA, EOMI ENT: Moist mucus membranes NECK: No JVD LUNGS: CTA, no wheezes HEART: RRR, no murmurs ABDOMEN: Soft, nontender, BS present MUSCULOSKELETAL: No CVA Tenderness EXTREMITIES: 2+ pulses, no edema. NEUROLOGICAL: Cranial nerves II-XII intact. LABS Laboratory Results - last 24 hr 10/22/18 10/23/18 10/24/18 17:00 06:30 10:15 WBC 6.2 RBC 2.70 L Hgb 8.7 L Hct 26.0 L MCV 96.6 H MCH 32.4 MCHC 33.6 RDW 18.1 H Plt Count 397 MPV 6.7 L Absolute Neuts (auto) 4.5 Neutrophils % 73.5 Lymphocytes % 14.7 D Monocytes % 8.9 Eosinophils % 2.0 Basophils % 0.9 Nucleated RBC % 0 Sodium 139 Potassium 3.7 Chloride 105 Carbon Dioxide 28 Anion Gap 6 L BUN 22 H Creatinine 1.1 Creat Clearance w eGFR 63.47 Random Glucose 94 Calcium 8.8 Phosphorus 3.2 Magnesium 1.6 L Iron 35 L TIBC 247 L Iron Saturation 14 L Ferritin 184.7 Total Bilirubin 0.3 AST 18 ALT 14 Alkaline Phosphatase 90 Total Protein 7.0 Albumin 2.4 L Vitamin B12 530 Serum Folate 7 10/24/18 10:15 WBC RBC Hgb Hct MCV MCH MCHC RDW Plt Count MPV Absolute Neuts (auto) Neutrophils % Lymphocytes % Monocytes % Eosinophils % Basophils % Nucleated RBC % Sodium 136 Potassium 4.2 Chloride 102 Carbon Dioxide 29 Anion Gap 5 L BUN 17 Creatinine 1.1 Creat Clearance w eGFR 63.47 Random Glucose 123 H Calcium 8.6 Phosphorus Magnesium 2.2 Iron TIBC Iron Saturation Ferritin Total Bilirubin AST ALT Alkaline Phosphatase Total Protein Albumin Vitamin B12 Serum Folate HOSPITAL COURSE: Date of Admission:10/22/18 Date of Discharge: 10/24/18 88 year old male with a significant past medical history of Prostate Cancer ( diagnosed [id number]) treated w/ Seeds and Radiation ([facility], Dr Virgen), BPH, Asbestosis (retired [employer]) CHF, COPD, HTN, HLD, CKD, hypothyroidism, and basal cell carcinoma on back who presented to [facility] due to continued gross hematuria with clots for 1 month, sent by urology (dr. callejas ). Endorses he has experienced these symptoms in the distant past. Pt is a resident of [facility] in [place]. While at [facility], pt was also being treated with Levaquin for a UTI ( 10/14/2018 reveals + Janine resistant to Levaquin.) He was admitted for the treatment of UTI and hematuria. Urology that was consulted recommended DC if Hgb stable for outpatient followup. Patient was treated with ertapenem and meropenem in the hospital and discharged home on ciprofloxacin for 3 days due to a stable hemoglobin with recommendations to follow with urology in 1 week. Minutes to complete discharge: 38 Discharge Summary Reason For Visit: MULTIPLE DRUG RESUSTANT [employer]ISM MDRO Current Active Problems Hemorrhagic cystitis (Acute) Condition: Improved - Instructions Diet, Activity, Other Instructions: You were admitted to the hospital for the treatment of hematuria and urinary tract infection. Your blood counts are stable. Medical recommendations: Please take ciprofloxacin 500mg twice a day for 3 more days Please take ferrous sulfate 325mg twice a day Referrals: Please see your primary care physician within 1 week of discharge Please make an appointment with the urologist within 1 week of discharge If you experience any fevers, chills, nausea, vomiting, diarrhea, severe weakness, chest pain or shortness of breath Referrals: Diaz Callejas MD [Staff Physician] - Disposition: [facility] - Home Medications Comprehensive Discharge Medication List: Ambulatory Orders Acetaminophen [Tylenol .Extra-Strength -] 1,000 mg PO BID 10/22/18 Aspirin 81 mg PO DAILY 10/22/18 Ferrous Sulfate 325 mg PO BID 10/22/18 Furosemide [Lasix] 40 mg PO DAILY 10/22/18 Gabapentin 300 mg PO HS 10/22/18 Levothyroxine Sodium [Levo-T] 50 mcg PO DAILY 10/22/18 Loratadine 10 mg PO DAILY PRN 10/22/18 Mirabegron [Myrbetriq] 25 mg PO DAILY 10/22/18 Omeprazole 40 mg PO AM 10/22/18 Simethicone 180 mg PO TID 10/22/18 Tamsulosin HCl 0.4 mg PO DAILY 10/22/18 [place]-3 Acid Ethyl Esters [Lovaza -] 1,000 mg PO DAILY 10/23/18 Ciprofloxacin [Cipro -] 500 mg PO Q12H #6 tablet 10/24/18 This patient is new to me today: No Emergency Visit: No Critical Care patient: No - Discharge Referral [facility] No
--- NOTE | 2018-10-24 14:06 | PN ---
Teaching Attending Note Name of Resident: Diaz Collier ATTENDING PHYSICIAN STATEMENT I saw and evaluated the patient. I reviewed the resident's note and discussed the case with the resident. I agree with the resident's findings and plan as documented. SUBJECTIVE: Hematuria. No dysuria. No fever/chills. No nausea/vomiting. No abdominal/flank pain. OBJECTIVE: Afebrile, Hemodynamically Stable. Last Vital Signs Temp Pulse Resp BP Pulse Ox 97.8 F 73 20 111/60 94 L 10/24/18 06:17 10/24/18 06:17 10/24/18 09:00 10/24/18 06:17 10/24/18 09:00 Heart - S1, S2, RRR Lungs - clear to auscultation Abdomen - Soft, non-tender. Bowel Sounds normal. Extremities - no edema. Laboratory Results - last 24 hr 10/22/18 10/23/18 10/24/18 17:00 06:30 10:15 WBC 6.2 RBC 2.70 L Hgb 8.7 L Hct 26.0 L MCV 96.6 H MCH 32.4 MCHC 33.6 RDW 18.1 H Plt Count 397 MPV 6.7 L Absolute Neuts (auto) 4.5 Neutrophils % 73.5 Lymphocytes % 14.7 D Monocytes % 8.9 Eosinophils % 2.0 Basophils % 0.9 Nucleated RBC % 0 Sodium 139 Potassium 3.7 Chloride 105 Carbon Dioxide 28 Anion Gap 6 L BUN 22 H Creatinine 1.1 Creat Clearance w eGFR 63.47 Random Glucose 94 Calcium 8.8 Phosphorus 3.2 Magnesium 1.6 L Iron 35 L TIBC 247 L Iron Saturation 14 L Ferritin 184.7 Total Bilirubin 0.3 AST 18 ALT 14 Alkaline Phosphatase 90 Total Protein 7.0 Albumin 2.4 L Vitamin B12 530 Serum Folate 7 10/24/18 10:15 WBC RBC Hgb Hct MCV MCH MCHC RDW Plt Count MPV Absolute Neuts (auto) Neutrophils % Lymphocytes % Monocytes % Eosinophils % Basophils % Nucleated RBC % Sodium 136 Potassium 4.2 Chloride 102 Carbon Dioxide 29 Anion Gap 5 L BUN 17 Creatinine 1.1 Creat Clearance w eGFR 63.47 Random Glucose 123 H Calcium 8.6 Phosphorus Magnesium 2.2 Iron TIBC Iron Saturation Ferritin Total Bilirubin AST ALT Alkaline Phosphatase Total Protein Albumin Vitamin B12 Serum Folate Current Medications Generic Name Dose Route Start Last Admin Trade Name Freq PRN Reason Stop Dose Admin Acetaminophen 1,000 mg 10/23/18 10:00 10/24/18 10:37 Tylenol - PO Not Given BID [facility] Ferrous Sulfate 325 mg 10/23/18 10:00 10/24/18 10:35 Feosol - PO 325 mg BID MARILIN Administration Furosemide 40 mg 10/23/18 10:00 10/24/18 10:36 Lasix - PO 40 mg DAILY MARILIN Administration Gabapentin 300 mg 10/23/18 22:00 10/23/18 21:53 Neurontin - PO 300 mg HS MARILIN Administration Lactated Ringer's 1,000 ml in 1,000 mls @ 42 mls/hr 10/23/18 06:45 10/24/18 06:01 Lactated Ringers Solution IV 42 mls/hr ASDIR MARILIN Administration Meropenem 1 gm/ Dextrose 100 mls @ 200 mls/hr 10/23/18 18:00 10/24/18 10:34 IVPB 200 mls/hr Q8H-IV MARILIN Administration Levothyroxine Sodium 50 mcg 10/23/18 07:00 10/24/18 06:01 Synthroid - PO 50 mcg DAILY@0700 MARILIN Administration Loratadine 10 mg 10/22/18 23:59 Claritin - PO DAILY PRN ALLERGIES Non-Formulary Medication 25 mg 10/23/18 10:00 Mirabegron [Myrbetriq] PO DAILY [facility] Pantoprazole Sodium 40 mg 10/23/18 07:00 10/24/18 06:05 Protonix - PO 40 mg AM MARILIN Administration Simethicone 160 mg 10/23/18 06:00 10/24/18 05:58 Mylicon - PO 160 mg TID MARILIN Administration Tamsulosin HCl 0.4 mg 10/23/18 08:30 10/24/18 10:36 Flomax - PO 0.4 mg DAILY@0830 MARILIN Administration ASSESSMENT AND PLAN: 88 year old male with Prostate Cancer s/p RTx with Seeds, BPH, GERD, Asbestosis , COPD, HTN, HLD, Hypothyroidism, BCC on Back, CHF, urinary incontinence, presented with 1 month history of gross hematuria. 1. 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 B12 - 530, Folate 7, Iron Sat 14, Ferritin 184 CTAP [facility] - Bilateral chronic hydroureteronephrosis, moderate on the right and left, down to the level of the bladder. Right ureter markedly dilated measuring 2.6 cm in widest diameter. No stones appreciated. Bladder US - large post-void residual. Urology evaluated - recommend discharge with outpatient office follow up next week for cystoscopy. Hx BPH - Continue Tamsulosin, Myrbetriq Current Urine Cx < 100,000 CFU/ml Empirically given Ertapenem (PCN Allergy) due to prior Morganella infection - will discharge with 3 additional days of Ciprofloxacin to complete 5 day empiric Abx course. Afebrile, Hemodynamically Stable. 2. HTN - not on medications - BP at target. 3. Hx COPD - no evidence of exacerbation. 4. Hypomagnesemia - repleted. 5. Chronic CHF (?diastolic versus systolic, no Echo at [facility]) - normally on Lasix. 6. Hypothyroidism - continue Levothyroxine. 7. GERD - Continue PPI DVT Px - SCDs (no Heparin given Hematuria). Medically and Hemodynamically Stable for transfer to [place] with out-patient Urology follow up next week for cystoscopy. DNR/DNI
--- NOTE | 2018-10-24 17:48 | PN ---
Progress Note, Physician History of Present Illness: Pt seen and examined. Events noted, labs reviewed. Pt states he feels well, remains afebrile. Without specific complaints. - Current Medication List Current Medications: Active Medications Acetaminophen (Tylenol -) 1,000 mg PO BID [facility] Last Admin: 10/24/18 10:37 Dose: Not Given Ferrous Sulfate (Feosol -) 325 mg PO BID [facility] Last Admin: 10/24/18 10:35 Dose: 325 mg Furosemide (Lasix -) 40 mg PO DAILY [facility] Last Admin: 10/24/18 10:36 Dose: 40 mg Gabapentin (Neurontin -) 300 mg PO HS [facility] Last Admin: 10/23/18 21:53 Dose: 300 mg Lactated Ringer's (Lactated Ringers Solution) 1,000 ml in 1,000 mls @ 42 mls/ hr IV ASDIR [facility] Last Admin: 10/24/18 06:01 Dose: 42 mls/hr Meropenem 1 gm/ Dextrose 100 mls @ 200 mls/hr IVPB Q8H-IV [facility] Last Admin: 10/24/18 10:34 Dose: 200 mls/hr Levothyroxine Sodium (Synthroid -) 50 mcg PO DAILY@0700 [facility] Last Admin: 10/24/18 06:01 Dose: 50 mcg Loratadine (Claritin -) 10 mg PO DAILY PRN PRN Reason: ALLERGIES Non-Formulary Medication (Mirabegron [Myrbetriq]) 25 mg PO DAILY [facility] Pantoprazole Sodium (Protonix -) 40 mg PO AM [facility] Last Admin: 10/24/18 06:05 Dose: 40 mg Simethicone (Mylicon -) 160 mg PO TID [facility] Last Admin: 10/24/18 15:14 Dose: 160 mg Tamsulosin HCl (Flomax -) 0.4 mg PO DAILY@0830 [facility] Last Admin: 10/24/18 10:36 Dose: 0.4 mg - Objective Vital Signs: Vital Signs Temperature 97.9 F 10/24/18 17:17 Pulse Rate 92 H 10/24/18 17:17 Respiratory Rate 20 10/24/18 17:17 Blood Pressure 114/60 10/24/18 17:17 O2 Sat by Pulse Oximetry (%) 94 L 10/24/18 09:00 Constitutional: Yes: No Distress, Calm Cardiovascular: Yes: Regular Rate and Rhythm Respiratory: Yes: Regular Gastrointestinal: Yes: Normal Bowel Sounds, Soft Extremities: Yes: WNL Integumentary: Yes: WNL Neurological: Yes: Alert Labs: CBC, BMP 10/24/18 10:15 10/24/18 10:15 INR, PTT INR 1.18 (0.83-1.09) H 10/23/18 06:30 Microbiology 10/22/18 17:25 Urine - Urine Clean Catch Urine Culture - Preliminary Non Lactose Fermenting Gnb Lactose Fermenting Neg Bacilli Problem List - Problems (1) Hemorrhagic cystitis Code(s): N30.91 - CYSTITIS, UNSPECIFIED WITH HEMATURIA Assessment/Plan Complicated MDR gram neg UTI Hematuria hydroureter/hydronephrosis Hx of Prostate CA s/p seed implant BPH CHF CKD COPD -- Urine cultures still pending, f/u isolate/susceptibilities -- previous urine culture reportedly with growth of Morganella resistant to Fluoroquinolones -- suggest continue Meropenem for now -- Urology followup PMD paged to discuss, awaiting response
[2018-10-24] MEDS: GABAPENTIN 300 MG CAPSULE (FP) PO SCH (22:07)
[2018-10-25] MEDS ORDERED: MEROPENEM 1 GM VIAL (RESTRICTED TO ID) IVPB ONE ×2 (01:51→09:03)
[2018-10-25] MEDS ORDERED: DEXTROSE 5%-WATER 100 ML IVPB ONE ×2 (01:52→09:03)
[2018-10-25] MEDS: MEROPENEM 1 GM in DEXTROSE 5%-WATER 100 ML IVPB SCH ×2 (02:01→09:45)
[2018-10-25] MEDS: SIMETHICONE 80 MG TAB.CHEW (FP) PO SCH ×3 (05:33→22:06)
[2018-10-25] MEDS: LACTATED RINGERS SOLUTION 1,000 ML/1,000 ML INFUS.BAG IV SCH ×2 (05:34→06:28)
[2018-10-25] MEDS: LEVOTHYROXINE NA 50 MCG TABLET (FP) PO SCH (06:29)
[2018-10-25] MEDS: PANTOPRAZOLE 40 MG TABLET (FP) PO SCH (06:29)
[2018-10-25 06:36] LABS: SERUM IRON SATURATION 17 % (15-55); TOTAL IRON BINDING CAPACITY 228 ug/dL (250-450); UIBC 189 ug/dL (111-343)
[2018-10-25] MEDS: FUROSEMIDE 40 MG TABLET (FP) PO SCH (09:44)
[2018-10-25] MEDS: FERROUS SO4 325 MG TABLET (FP) PO SCH ×2 (09:44→22:06)
[2018-10-25] MEDS: TAMSULOSIN HCL 0.4 MG CAP PO SCH (09:44)
[2018-10-25] MEDS: ACETAMINOPHEN 500 MG TABLET (FP) PO SCH ×2 (09:45→22:05)
--- NOTE | 2018-10-25 11:30 | PN ---
Progress Note (short form) - Note Progress Note: c/o passing multiple blood clots. denies CP, SOB, fever, chills, N/V/C/D or dysuria Current Medications Generic Name Dose Route Start Last Admin Trade Name Lupe PRN Reason Stop Dose Admin Acetaminophen 1,000 mg 10/23/18 10:00 10/25/18 09:45 Tylenol - PO Not Given BID [facility]IL[facility] Ferrous Sulfate 325 mg 10/23/18 10:00 10/25/18 09:44 Feosol - PO 325 mg BID MARILIN Administration Furosemide 40 mg 10/23/18 10:00 10/25/18 09:44 Lasix - PO 40 mg DAILY [facility]ILIN Administration Gabapentin 300 mg 10/23/18 22:00 10/24/18 22:07 Neurontin - PO 300 mg HS MARILIN Administration Lactated Ringer's 1,000 ml in 1,000 mls @ 42 mls/hr 10/23/18 06:45 10/25/18 06:28 Lactated Ringers Solution IV Not Given ASDIR MARILIN Meropenem 1 gm/ Dextrose 100 mls @ 200 mls/hr 10/23/18 18:00 10/25/18 09:45 IVPB 200 mls/hr Q8H-IV MARILIN Administration Levothyroxine Sodium 50 mcg 10/23/18 07:00 10/25/18 06:29 Synthroid - PO 50 mcg DAILY@0700 MARILIN Administration Loratadine 10 mg 10/22/18 23:59 Claritin - PO DAILY PRN ALLERGIES Non-Formulary Medication 25 mg 10/23/18 10:00 Mirabegron [Myrbetriq] PO DAILY [facility] Pantoprazole Sodium 40 mg 10/23/18 07:00 10/25/18 06:29 Protonix - PO 40 mg AM MARILIN Administration Simethicone 160 mg 10/23/18 06:00 10/25/18 05:33 Mylicon - PO 160 mg TID MARILIN Administration Tamsulosin HCl 0.4 mg 10/23/18 08:30 10/25/18 09:44 Flomax - PO 0.4 mg DAILY@0830 MARILIN Administration Last Vital Signs Temp Pulse Resp BP Pulse Ox 97.6 F 83 20 103/67 95 10/25/18 06:00 10/25/18 06:00 10/25/18 06:00 10/25/18 06:00 10/24/18 21:00 General NAD CV S1 S2 RRR no murmur/rub/gallop Lungs CTA B/L no wheezing/rlaes/rhonchi Abdomen soft NT/ND Extremities no pedal edema CBCD WBC 6.2 K/mm3 (4.0-10.0) 10/24/18 10:15 RBC 2.70 M/mm3 (4.00-5.60) L 10/24/18 10:15 Hgb 8.7 GM/dL (11.7-16.9) L 10/24/18 10:15 Hct 26.0 % (35.4-49) L 10/24/18 10:15 MCV 96.6 fl (80-96) H 10/24/18 10:15 MCHC 33.6 g/dl (32.0-35.9) 10/24/18 10:15 RDW 18.1 % (11.9-15.9) H 10/24/18 10:15 Plt Count 397 K/MM3 (134-434) 10/24/18 10:15 MPV 6.7 fl (7.5-11.1) L 10/24/18 10:15 CMP Sodium 136 mmol/L (136-145) 10/24/18 10:15 Potassium 4.2 mmol/L (3.5-5.1) 10/24/18 10:15 Chloride 102 mmol/L (98-107) 10/24/18 10:15 Carbon Dioxide 29 mmol/L (21-32) 10/24/18 10:15 Anion Gap 5 MMOL/L (8-16) L 10/24/18 10:15 BUN 17 mg/dL (7-18) 10/24/18 10:15 Creatinine 1.1 mg/dL (0.55-1.3) 10/24/18 10:15 Creat Clearance w eGFR 63.47 (>60) 10/24/18 10:15 Random Glucose 123 mg/dL (74-106) H 10/24/18 10:15 Calcium 8.6 mg/dL (8.5-10.1) 10/24/18 10:15 Total Bilirubin 0.3 mg/dL (0.2-1) 10/23/18 06:30 AST 18 U/L (15-37) 10/23/18 06:30 ALT 14 U/L (13-61) 10/23/18 06:30 Alkaline Phosphatase 90 U/L (45-117) 10/23/18 06:30 Total Protein 7.0 g/dl (6.4-8.2) 10/23/18 06:30 Albumin 2.4 g/dl (3.4-5.0) L 10/23/18 06:30 Assessment and Plan 88 year old male with Prostate Cancer s/p RTx with Seeds, BPH, GERD, Asbestosis , COPD, HTN, HLD, Hypothyroidism, BCC on Back, CHF, urinary incontinence, presented with 1 month history of gross hematuria. 1. Acute on Chronic Blood Loss Anemia- secondary to Hematuria. cont to pass blood clots. plan for cystoscopy after treated for UTI. urology on board 2. MDR Morganella UTI- only sensitive to IV medications. will switch Meropenem to ERtapenem. will need to complete 7 days of therapy. today is day 4. will reach out to SNF tomorrow to see if able to administer through peripheral line at facility. otherwise will need to complete IV abx here 3. COPD- no signs of exacerbation 4. HTN- does not appear to have HTN as been normotensive off medication and did not arrive on medications 5. CHF- euvolemic. cont home medications 6. Hypothyroidism - continue Levothyroxine. 7. GERD - Continue PPI 8. DVT Px - SCDs (no Heparin given Hematuria). 9. DNR/DNI. possible d/c tomorrow if SNF is able to administer abx via peripheral line. would not give PICC line in this patient as duration does not justify risks with placement of line. if not will remain hospitalized to complete abx on 10/28/18 Visit type - Emergency Visit Emergency Visit: Yes ED Registration Date: 10/22/18 Care time: The patient presented to the Emergency Department on the above date and was hospitalized for further evaluation of their emergent condition. - New Patient This patient is new to me today: Yes Date on this admission: 10/25/18 - Critical Care Critical Care patient: No - Discharge Referral Referred to [facility] No
[2018-10-25] MEDS: ERTAPENEM SODIUM 1 GM in SODIUM CHLORIDE 50 ML IVPB SCH (13:57)
--- NOTE | 2018-10-25 13:59 | PN ---
Progress Note, Physician History of Present Illness: Pt is alert, afebrile. Still continues to pass clots when urinating. No other specific complaints. - Current Medication List Current Medications: Active Medications Acetaminophen (Tylenol -) 1,000 mg PO BID [facility] Last Admin: 10/25/18 09:45 Dose: Not Given Ferrous Sulfate (Feosol -) 325 mg PO BID [facility] Last Admin: 10/25/18 09:44 Dose: 325 mg Furosemide (Lasix -) 40 mg PO DAILY [facility] Last Admin: 10/25/18 09:44 Dose: 40 mg Gabapentin (Neurontin -) 300 mg PO HS [facility] Last Admin: 10/24/18 22:07 Dose: 300 mg Ertapenem 1 gm/ Sodium (Chloride) 50 mls @ 100 mls/hr IVPB DAILY [facility] Levothyroxine Sodium (Synthroid -) 50 mcg PO DAILY@0700 [facility] Last Admin: 10/25/18 06:29 Dose: 50 mcg Loratadine (Claritin -) 10 mg PO DAILY PRN PRN Reason: ALLERGIES Non-Formulary Medication (Mirabegron [Myrbetriq]) 25 mg PO DAILY [facility] Pantoprazole Sodium (Protonix -) 40 mg PO AM [facility] Last Admin: 10/25/18 06:29 Dose: 40 mg Simethicone (Mylicon -) 160 mg PO TID [facility] Last Admin: 10/25/18 05:33 Dose: 160 mg Tamsulosin HCl (Flomax -) 0.4 mg PO DAILY@0830 [facility] Last Admin: 10/25/18 09:44 Dose: 0.4 mg - Objective Vital Signs: Vital Signs Temperature 97.8 F 10/25/18 10:00 Pulse Rate 83 10/25/18 10:00 Respiratory Rate 18 10/25/18 10:00 Blood Pressure 104/57 L 10/25/18 10:00 O2 Sat by Pulse Oximetry (%) 96 10/25/18 09:00 Constitutional: Yes: No Distress, Calm Cardiovascular: Yes: Regular Rate and Rhythm Respiratory: Yes: Regular Gastrointestinal: Yes: Normal Bowel Sounds, Soft Genitourinary: Yes: Other (hematuria) Extremities: Yes: WNL Integumentary: Yes: WNL Neurological: Yes: Alert Labs: CBC, BMP 10/24/18 10:15 10/24/18 10:15 INR, PTT INR 1.18 (0.83-1.09) H 10/23/18 06:30 Microbiology 10/22/18 17:25 Urine - Urine Clean Catch Urine Culture - Final Morganella Morganii Lactose Fermenting Neg Bacilli Problem List - Problems (1) Hemorrhagic cystitis Code(s): N30.91 - CYSTITIS, UNSPECIFIED WITH HEMATURIA Assessment/Plan Complicated MDR Morganella bacteriuria/ UTI Persistent Hematuria hydroureter/hydronephrosis Hx of Prostate CA s/p seed implant BPH CHF CKD COPD - Urine culture results noted, +MDR morganella growth (pt also with PCN allergy) , still passing multiple blood clots - recommend continue antibiotics (switch to Ertapenem) especially if cystoscopy planned in the near future, currently tolerating - pt otherwise stable -- Urology followup case discussed with primary
[2018-10-25] MEDS: GABAPENTIN 300 MG CAPSULE (FP) PO SCH (22:06)
[2018-10-26] MEDS: SIMETHICONE 80 MG TAB.CHEW (FP) PO SCH ×3 (06:04→22:24)
[2018-10-26] MEDS: LEVOTHYROXINE NA 50 MCG TABLET (FP) PO SCH (06:04)
[2018-10-26] MEDS: PANTOPRAZOLE 40 MG TABLET (FP) PO SCH (06:04)
[2018-10-26 07:04] LABS: HEMATOCRIT 26.4 % (35.4-49); MCH 33.1 pg (25.7-33.7); MCHC 34.1 g/dl (32.0-35.9); MEAN CELL VOLUME 97.1 fl (80-96); MEAN PLT VOLUME 6.9 fl (7.5-11.1); PLATELET COUNT 373 K/MM3 (134-434); RBC 2.72 M/mm3 (4.00-5.60); RDW 18.1 % (11.9-15.9); WHITE BLOOD COUNT 7.8 K/mm3 (4.0-10.0)
[2018-10-26] MEDS: TAMSULOSIN HCL 0.4 MG CAP PO SCH (08:22)
[2018-10-26] MEDS: ERTAPENEM SODIUM 1 GM in SODIUM CHLORIDE 50 ML IVPB SCH (09:58)
[2018-10-26] MEDS: FUROSEMIDE 40 MG TABLET (FP) PO SCH (09:59)
[2018-10-26] MEDS: FERROUS SO4 325 MG TABLET (FP) PO SCH ×2 (09:59→22:24)
[2018-10-26] MEDS: ACETAMINOPHEN 500 MG TABLET (FP) PO SCH ×2 (09:59→22:27)
--- NOTE | 2018-10-26 11:15 | PN ---
Progress Note, Physician History of Present Illness: patient stable no new issues still passing clots urine cx noted - Current Medication List Current Medications: Active Medications Acetaminophen (Tylenol -) 1,000 mg PO BID [facility] Last Admin: 10/26/18 09:59 Dose: 1,000 mg Ferrous Sulfate (Feosol -) 325 mg PO BID [facility] Last Admin: 10/26/18 09:59 Dose: 325 mg Furosemide (Lasix -) 40 mg PO DAILY [facility] Last Admin: 10/26/18 09:59 Dose: 40 mg Gabapentin (Neurontin -) 300 mg PO HS [facility] Last Admin: 10/25/18 22:06 Dose: 300 mg Ertapenem 1 gm/ Sodium (Chloride) 50 mls @ 100 mls/hr IVPB DAILY [facility] Last Admin: 10/26/18 09:58 Dose: 100 mls/hr Levothyroxine Sodium (Synthroid -) 50 mcg PO DAILY@0700 [facility] Last Admin: 10/26/18 06:04 Dose: 50 mcg Loratadine (Claritin -) 10 mg PO DAILY PRN PRN Reason: ALLERGIES Non-Formulary Medication (Mirabegron [Myrbetriq]) 25 mg PO DAILY [facility] Pantoprazole Sodium (Protonix -) 40 mg PO AM [facility] Last Admin: 10/26/18 06:04 Dose: 40 mg Simethicone (Mylicon -) 160 mg PO TID [facility] Last Admin: 10/26/18 06:04 Dose: 160 mg Tamsulosin HCl (Flomax -) 0.4 mg PO DAILY@0830 [facility] Last Admin: 10/26/18 08:22 Dose: 0.4 mg - Objective Vital Signs: Vital Signs Temperature 98.0 F 10/26/18 05:52 Pulse Rate 98 H 10/26/18 05:52 Respiratory Rate 18 10/26/18 05:52 Blood Pressure 121/44 L 10/26/18 05:52 O2 Sat by Pulse Oximetry (%) 96 10/25/18 21:00 Constitutional: Yes: No Distress, Calm Cardiovascular: Yes: S1, S2 Respiratory: Yes: Regular, CTA Bilaterally Gastrointestinal: Yes: Normal Bowel Sounds, Soft Genitourinary: Yes: Hematuria Musculoskeletal: Yes: WNL Extremities: Yes: WNL Neurological: Yes: Alert Psychiatric: Yes: Other Labs: CBC, BMP 10/26/18 06:00 10/24/18 10:15 INR, PTT INR 1.18 (0.83-1.09) H 10/23/18 06:30 Assessment/Plan Problem List - Problems (1) Hemorrhagic cystitis Code(s): N30.91 - CYSTITIS, UNSPECIFIED WITH HEMATURIA Assessment/Plan Complicated MDR Morganella bacteriuria/ UTI Persistent Hematuria hydroureter/hydronephrosis Hx of Prostate CA s/p seed implant BPH CHF CKD COPD continue abx rest as per the team monitor clots and h and h
--- NOTE | 2018-10-26 13:45 | PN ---
Teaching Attending Note Name of Resident: Sander Xie ATTENDING PHYSICIAN STATEMENT I saw and evaluated the patient. I reviewed the resident's note and discussed the case with the resident. I agree with the resident's findings and plan as documented. SUBJECTIVE:passing less clots. denies CP, SOB, fever, chills, N/V/C/D OBJECTIVE: Last Vital Signs Temp Pulse Resp BP Pulse Ox 97.4 F L 89 20 115/58 L 94 L 10/26/18 13:34 10/26/18 13:34 10/26/18 13:34 10/26/18 13:34 10/26/18 09:00 General NAD abdomen soft NT/ND ASSESSMENT AND PLAN: 88 year old male with Prostate Cancer s/p RTx with Seeds, BPH, GERD, Asbestosis , COPD, HTN, HLD, Hypothyroidism, BCC on Back, CHF, urinary incontinence, presented with 1 month history of gross hematuria. 1. Acute on Chronic Blood Loss Anemia- secondary to Hematuria. cont to pass blood clots. Hgb remains stable. plan for cystoscopy after treated for UTI. urology on board 2. MDR Morganella UTI- only sensitive to IV medications.on ERtapenem day 5 of 7 3. COPD- no signs of exacerbation 4. HTN- does not appear to have HTN as been normotensive off medication and did not arrive on medications 5. CHF- euvolemic. cont home medications 6. Hypothyroidism - continue Levothyroxine. 7. GERD - Continue PPI 8. DVT Px - SCDs (no Heparin given Hematuria). 9. DNR/DNI. plan for discharge on 10/28 after completes abx therapy
--- NOTE | 2018-10-26 13:48 | PN ---
Physical Exam: SUBJECTIVE: Patient seen and examined. Per nurse he has very little hematuria. Pt. denies any symptoms and states "how can I be unhappy with all the wonderful nurses here." OBJECTIVE: Vital Signs Period Temp Pulse Resp BP Sys/Mathis Pulse Ox Last 24 Hr 97.4 F-98.2 F 88-98 18-20 96-121/44-66 94-96 GENERAL: The patient is awake, alert, and fully oriented, in no acute distress. HEAD: Normal with no signs of trauma. EYES: Sclera anicteric, conjunctiva clear. ENT: Ears normal, nares patent,moist mucous membranes. LUNGS: Breath sounds equal, clear to auscultation bilaterally, no wheezes, no crackles, no accessory muscle use. HEART: Regular rate and rhythm, S1, S2 without murmur ABDOMEN: Soft, nontender, nondistended, normoactive bowel sounds, no guarding, no rebound EXTREMITIES: 2+ radial pulses, warm, no calf tenderness, well-perfused, no edema. NEUROLOGICAL: Normal speech, gait not observed. PSYCH: Normal mood, normal affect. SKIN: Warm, dry, normal turgor, no rashes or lesions noted Laboratory Results - last 24 hr 10/26/18 10/26/18 06:00 12:02 WBC 7.8 RBC 2.72 L Hgb 9.0 L Hct 26.4 L MCV 97.1 H MCH 33.1 MCHC 34.1 RDW 18.1 H Plt Count 373 MPV 6.9 L POC Glucometer 114 Active Medications Home Medications Medication Instructions Recorded Acetaminophen [Tylenol 1,000 mg PO BID 10/22/18 .Extra-Strength -] Aspirin 81 mg PO DAILY 10/22/18 Ferrous Sulfate 325 mg PO BID 10/22/18 Furosemide [Lasix] 40 mg PO DAILY 10/22/18 Gabapentin 300 mg PO HS 10/22/18 Levothyroxine Sodium [Levo-T] 50 mcg PO DAILY 10/22/18 Loratadine 10 mg PO DAILY PRN 10/22/18 Mirabegron [Myrbetriq] 25 mg PO DAILY 10/22/18 Omeprazole 40 mg PO AM 10/22/18 Simethicone 180 mg PO TID 10/22/18 Tamsulosin HCl 0.4 mg PO DAILY 10/22/18 [place]-3 Acid Ethyl Esters [Lovaza 1,000 mg PO DAILY 10/23/18 -] Ciprofloxacin [Cipro -] 500 mg PO Q12H #6 tablet 10/24/18 Current Medications Acetaminophen (Tylenol -) 1,000 mg PO BID [facility] Last Admin: 10/26/18 09:59 Dose: 1,000 mg Ferrous Sulfate (Feosol -) 325 mg PO BID [facility] Last Admin: 10/26/18 09:59 Dose: 325 mg Furosemide (Lasix -) 40 mg PO DAILY [facility] Last Admin: 10/26/18 09:59 Dose: 40 mg Gabapentin (Neurontin -) 300 mg PO HS [facility] Last Admin: 10/25/18 22:06 Dose: 300 mg Ertapenem 1 gm/ Sodium (Chloride) 50 mls @ 100 mls/hr IVPB DAILY [facility] Last Admin: 10/26/18 09:58 Dose: 100 mls/hr Levothyroxine Sodium (Synthroid -) 50 mcg PO DAILY@0700 [facility] Last Admin: 10/26/18 06:04 Dose: 50 mcg Loratadine (Claritin -) 10 mg PO DAILY PRN PRN Reason: ALLERGIES Non-Formulary Medication (Mirabegron [Myrbetriq]) 25 mg PO DAILY [facility] Pantoprazole Sodium (Protonix -) 40 mg PO AM [facility] Last Admin: 10/26/18 06:04 Dose: 40 mg Simethicone (Mylicon -) 160 mg PO TID [facility] Last Admin: 10/26/18 06:04 Dose: 160 mg Tamsulosin HCl (Flomax -) 0.4 mg PO DAILY@0830 [facility] Last Admin: 10/26/18 08:22 Dose: 0.4 mg ASSESSMENT/PLAN: Pt is an 88 y.o. M w/ PMHx. of Prostate Cancer (diagnosed [id number]) treated w/ Seeds and Radiation ([facility], Dr Virgen), BPH, Asbestosis (retired [employer]) CHF, COPD, HTN, HLD, CKD, hypothyroidism, and basal cell carcinoma on back who presented to [facility] due to continued gross hematuria. #Gross Hematuria Urinalysis 3+ blood, also appearance of julianne blood in diaper and h/o clots in [place] Urology on board. Plan for cystoscopy on October 28, after completion of Abx. H/H 8.3/25.1, trend Pelvic/Bladder US: CTAP performed at [facility] this month. " Bilateral chronic hydroureteronephrosis, moderate on the right and left, down to the level of the bladder. Right ureter markedly dilated measuring 2.6 cm in widest diameter. No stones appreciated." #MDR UTI Urine Culture 10/14/2018--> Morganella+ c/w Ertapenem 500mg (Day 5) ID Consult( Dr. Wolfe) appreciated UCx. positive for Morganella susceptible to Ertapenem #FEN No IVF, encourage PO intake Monitor Electrolytes Low Sodium Diet #DVT ppx: SCDs in light of gross hematuria #Dispo: Med-Surg Visit type - Emergency Visit Emergency Visit: Yes ED Registration Date: 10/22/18 Care time: The patient presented to the Emergency Department on the above date and was hospitalized for further evaluation of their emergent condition. - New Patient This patient is new to me today: No - Critical Care Critical Care patient: No - Discharge Referral [facility] No
[2018-10-26] MEDS: GABAPENTIN 300 MG CAPSULE (FP) PO SCH (22:24)
[2018-10-27] MEDS ORDERED: PT OWN MED DRAWER 7, Y5N ONE ×2 (05:14→08:55)
[2018-10-27] MEDS: PANTOPRAZOLE 40 MG TABLET (FP) PO SCH (06:20)
[2018-10-27] MEDS: LEVOTHYROXINE NA 50 MCG TABLET (FP) PO SCH (06:20)
[2018-10-27] MEDS: SIMETHICONE 80 MG TAB.CHEW (FP) PO SCH ×3 (06:20→21:06)
[2018-10-27 07:40] LABS: HEMATOCRIT 26.1 % (35.4-49); HEMOGLOBIN 8.6 GM/dL (11.7-16.9); MCH 31.8 pg (25.7-33.7); MEAN CELL VOLUME 96.3 fl (80-96); MEAN PLT VOLUME 6.8 fl (7.5-11.1); PLATELET COUNT 450 K/MM3 (134-434); RBC 2.71 M/mm3 (4.00-5.60); RDW 17.4 % (11.9-15.9); WHITE BLOOD COUNT 8.3 K/mm3 (4.0-10.0)
[2018-10-27] MEDS: ERTAPENEM SODIUM 1 GM in SODIUM CHLORIDE 50 ML IVPB SCH (10:11)
[2018-10-27] MEDS: FERROUS SO4 325 MG TABLET (FP) PO SCH ×2 (10:11→21:07)
[2018-10-27] MEDS: FUROSEMIDE 40 MG TABLET (FP) PO SCH (10:12)
[2018-10-27] MEDS: TAMSULOSIN HCL 0.4 MG CAP PO SCH (10:12)
[2018-10-27] MEDS: ACETAMINOPHEN 500 MG TABLET (FP) PO SCH ×3 (10:14→22:57)
--- NOTE | 2018-10-27 13:35 | PN ---
Progress Note, Physician History of Present Illness: still continues to have hematuria calm - Current Medication List Current Medications: Active Medications Acetaminophen (Tylenol -) 1,000 mg PO BID [facility] Last Admin: 10/27/18 10:14 Dose: Not Given Ferrous Sulfate (Feosol -) 325 mg PO BID [facility] Last Admin: 10/27/18 10:11 Dose: 325 mg Furosemide (Lasix -) 40 mg PO DAILY [facility] Last Admin: 10/27/18 10:12 Dose: 40 mg Gabapentin (Neurontin -) 300 mg PO HS [facility] Last Admin: 10/26/18 22:24 Dose: 300 mg Ertapenem 1 gm/ Sodium (Chloride) 50 mls @ 100 mls/hr IVPB DAILY [facility] Last Admin: 10/27/18 10:11 Dose: 100 mls/hr Levothyroxine Sodium (Synthroid -) 50 mcg PO DAILY@0700 [facility] Last Admin: 10/27/18 06:20 Dose: 50 mcg Loratadine (Claritin -) 10 mg PO DAILY PRN PRN Reason: ALLERGIES Non-Formulary Medication (Mirabegron [Myrbetriq]) 25 mg PO DAILY [facility] Pantoprazole Sodium (Protonix -) 40 mg PO AM [facility] Last Admin: 10/27/18 06:20 Dose: 40 mg Simethicone (Mylicon -) 160 mg PO TID [facility] Last Admin: 10/27/18 06:20 Dose: 160 mg Tamsulosin HCl (Flomax -) 0.4 mg PO DAILY@0830 [facility] Last Admin: 10/27/18 10:12 Dose: 0.4 mg - Objective Vital Signs: Vital Signs Temperature 97.8 F 10/27/18 10:00 Pulse Rate 90 10/27/18 10:00 Respiratory Rate 18 10/27/18 10:00 Blood Pressure 100/44 L 10/27/18 10:00 O2 Sat by Pulse Oximetry (%) 94 L 10/27/18 09:00 Constitutional: Yes: No Distress, Calm Respiratory: Yes: Regular, CTA Bilaterally Gastrointestinal: Yes: Normal Bowel Sounds, Soft Genitourinary: Yes: Hematuria Musculoskeletal: Yes: WNL Neurological: Yes: Alert, Oriented Psychiatric: Yes: Alert, Oriented Labs: CBC, BMP 10/27/18 06:00 10/24/18 10:15 INR, PTT INR 1.18 (0.83-1.09) H 10/23/18 06:30 Assessment/Plan Problem List - Problems (1) Hemorrhagic cystitis Code(s): N30.91 - CYSTITIS, UNSPECIFIED WITH HEMATURIA Assessment/Plan Complicated MDR Morganella bacteriuria/ UTI Persistent Hematuria hydroureter/hydronephrosis Hx of Prostate CA s/p seed implant BPH CHF CKD COPD continue abx patient for cystoscopy rest as per the team
--- NOTE | 2018-10-27 14:17 | PN ---
Teaching Attending Note Name of Resident: Sander Xie ATTENDING PHYSICIAN STATEMENT I saw and evaluated the patient. I reviewed the resident's note and discussed the case with the resident. I agree with the resident's findings and plan as documented. SUBJECTIVE:contiues to have intermittent clots. denies Cp, SOB, fever, chills, N /V/C/D OBJECTIVE: Last Vital Signs Temp Pulse Resp BP Pulse Ox 98.1 F 88 18 100/56 L 94 L 10/27/18 13:50 10/27/18 13:50 10/27/18 13:50 10/27/18 13:50 10/27/18 09:00 General NAD abdomen soft NT/ND ASSESSMENT AND PLAN: 88 year old male with Prostate Cancer s/p RTx with Seeds, BPH, GERD, Asbestosis , COPD, HTN, HLD, Hypothyroidism, BCC on Back, CHF, urinary incontinence, presented with 1 month history of gross hematuria. 1. Acute on Chronic Blood Loss Anemia- secondary to Hematuria. cont to pass blood clots. Hgb remains stable. plan for cystoscopy after treated for UTI. will reach out to urology if will be doing tomorrow or as outpatient. urology on board 2. MDR Morganella UTI- only sensitive to IV medications.on ERtapenem day 6 of 7 3. COPD- no signs of exacerbation 4. HTN- does not appear to have HTN as been normotensive off medication and did not arrive on medications 5. CHF- euvolemic. cont home medications 6. Hypothyroidism - continue Levothyroxine. 7. GERD - Continue PPI 8. DVT Px - SCDs (no Heparin given Hematuria). 9. DNR/DNI. plan for discharge on 10/28 after completes abx therapy
--- NOTE | 2018-10-27 16:31 | PN ---
Physical Exam: SUBJECTIVE: Patient seen and examined. No acute events overnight. Pt. denies any complaints. Pt. states that the hematuria has improved from yesterday. OBJECTIVE: Vital Signs Period Temp Pulse Resp BP Sys/Mathis Pulse Ox Last 24 Hr 97.8 F-98.1 F 87-91 18-20 88-118/44-59 94-94 GENERAL: The patient is awake, alert, and fully oriented, in no acute distress. HEAD: Normal with no signs of trauma. EYES: Sclera anicteric, conjunctiva clear. ENT: Ears normal, nares patent,moist mucous membranes. LUNGS: Breath sounds equal, clear to auscultation bilaterally, no wheezes, no crackles, no accessory muscle use. HEART: Regular rate and rhythm, S1, S2 without murmur ABDOMEN: Soft, nontender, nondistended, normoactive bowel sounds, no guarding, no rebound EXTREMITIES: 2+ radial pulses, warm, no calf tenderness, well-perfused, no edema. NEUROLOGICAL: Normal speech, gait not observed. PSYCH: Normal mood, normal affect. SKIN: Warm, dry, normal turgor, no rashes or lesions noted Laboratory Results - last 24 hr 10/26/18 10/27/18 16:54 06:00 WBC 8.3 RBC 2.71 L Hgb 8.6 L Hct 26.1 L MCV 96.3 H MCH 31.8 MCHC 33.0 RDW 17.4 H Plt Count 450 H D MPV 6.8 L POC Glucometer 103 Active Medications Home Medications Medication Instructions Recorded Acetaminophen [Tylenol 1,000 mg PO BID 10/22/18 .Extra-Strength -] Aspirin 81 mg PO DAILY 10/22/18 Ferrous Sulfate 325 mg PO BID 10/22/18 Furosemide [Lasix] 40 mg PO DAILY 10/22/18 Gabapentin 300 mg PO HS 10/22/18 Levothyroxine Sodium [Levo-T] 50 mcg PO DAILY 10/22/18 Loratadine 10 mg PO DAILY PRN 10/22/18 Mirabegron [Myrbetriq] 25 mg PO DAILY 10/22/18 Omeprazole 40 mg PO AM 10/22/18 Simethicone 180 mg PO TID 10/22/18 Tamsulosin HCl 0.4 mg PO DAILY 10/22/18 Anderson-3 Acid Ethyl Esters [Lovaza 1,000 mg PO DAILY 10/23/18 -] Ciprofloxacin [Cipro -] 500 mg PO Q12H #6 tablet 10/24/18 Current Medications Acetaminophen (Tylenol -) 1,000 mg PO BID [facility] Last Admin: 10/27/18 10:14 Dose: Not Given Ferrous Sulfate (Feosol -) 325 mg PO BID [facility] Last Admin: 10/27/18 10:11 Dose: 325 mg Furosemide (Lasix -) 40 mg PO DAILY [facility] Last Admin: 10/27/18 10:12 Dose: 40 mg Gabapentin (Neurontin -) 300 mg PO HS [facility] Last Admin: 10/26/18 22:24 Dose: 300 mg Ertapenem 1 gm/ Sodium (Chloride) 50 mls @ 100 mls/hr IVPB DAILY [facility] Last Admin: 10/27/18 10:11 Dose: 100 mls/hr Levothyroxine Sodium (Synthroid -) 50 mcg PO DAILY@0700 [facility] Last Admin: 10/27/18 06:20 Dose: 50 mcg Loratadine (Claritin -) 10 mg PO DAILY PRN PRN Reason: ALLERGIES Non-Formulary Medication (Mirabegron [Myrbetriq]) 25 mg PO DAILY [facility] Pantoprazole Sodium (Protonix -) 40 mg PO AM [facility] Last Admin: 10/27/18 06:20 Dose: 40 mg Simethicone (Mylicon -) 160 mg PO TID [facility] Last Admin: 10/27/18 14:10 Dose: 160 mg Tamsulosin HCl (Flomax -) 0.4 mg PO DAILY@0830 [facility] Last Admin: 10/27/18 10:12 Dose: 0.4 mg ASSESSMENT/PLAN: Pt is an 88 y.o. M w/ PMHx. of Prostate Cancer (diagnosed [id number]) treated w/ Seeds and Radiation ([facility], Dr Virgen), BPH, Asbestosis (retired [employer]) CHF, COPD, HTN, HLD, CKD, hypothyroidism, and basal cell carcinoma on back who presented to [facility] due to continued gross hematuria. #Gross Hematuria Urinalysis 3+ blood, also appearance of julianne blood in diaper and h/o clots in [place] Urology on board. Plan for cystoscopy on October 29, the day after completion of Abx. per discussion with Dr. Vega H/H 8.3/25.1, trend Pelvic/Bladder US: large post void residual CTAP performed at [facility] this month. " Bilateral chronic hydroureteronephrosis, moderate on the right and left, down to the level of the bladder. Right ureter markedly dilated measuring 2.6 cm in widest diameter. No stones appreciated." #MDR UTI Urine Culture 10/14/2018--> Morganella+ c/w Ertapenem 500mg (Day 6/7) ID Consult( Dr. Wolfe) appreciated UCx. positive for Morganella susceptible to Ertapenem #FEN No IVF, encourage PO intake Monitor Electrolytes Low Sodium Diet #DVT ppx: SCDs in light of gross hematuria #Dispo: Med-Surg Visit type - Emergency Visit Emergency Visit: Yes ED Registration Date: 10/22/18 Care time: The patient presented to the Emergency Department on the above date and was hospitalized for further evaluation of their emergent condition. - New Patient This patient is new to me today: No - Critical Care Critical Care patient: No - Discharge Referral Referred to [facility] Med P.C.: No
[2018-10-27] MEDS: GABAPENTIN 300 MG CAPSULE (FP) PO SCH (21:07)
[2018-10-28] MEDS: SIMETHICONE 80 MG TAB.CHEW (FP) PO SCH ×3 (05:53→21:37)
[2018-10-28] MEDS: LEVOTHYROXINE NA 50 MCG TABLET (FP) PO SCH (06:02)
[2018-10-28] MEDS: PANTOPRAZOLE 40 MG TABLET (FP) PO SCH (06:03)
--- NOTE | 2018-10-28 08:14 | PN ---
Physical Exam: SUBJECTIVE: Patient seen and examined. No acute events overnight. Pt. denies any complaints. Pt. states that the hematuria has improved from yesterday. OBJECTIVE: Vital Signs Period Temp Pulse Resp BP Sys/Mathis Pulse Ox Last 24 Hr 97.5 F-98.6 F 83-93 18-18 88-113/44-60 94-96 GENERAL: The patient is awake, alert, and fully oriented, in no acute distress. HEAD: Normal with no signs of trauma. EYES: Sclera anicteric, conjunctiva clear. ENT: Ears normal, nares patent,moist mucous membranes. LUNGS: Breath sounds equal, clear to auscultation bilaterally, no wheezes, no crackles, no accessory muscle use. HEART: Regular rate and rhythm, S1, S2 without murmur ABDOMEN: Soft, nontender, nondistended, normoactive bowel sounds, no guarding, no rebound EXTREMITIES: 2+ radial pulses, warm, no calf tenderness, well-perfused, no edema. NEUROLOGICAL: Normal speech, gait not observed. PSYCH: Normal mood, normal affect. SKIN: Warm, dry, normal turgor, no rashes or lesions noted Laboratory Results - last 24 hr 10/27/18 10/27/18 06:00 16:58 WBC 8.3 RBC 2.71 L Hgb 8.6 L Hct 26.1 L MCV 96.3 H MCH 31.8 MCHC 33.0 RDW 17.4 H Plt Count 450 H D MPV 6.8 L POC Glucometer 117 Active Medications Home Medications Medication Instructions Recorded Acetaminophen [Tylenol 1,000 mg PO BID 10/22/18 .Extra-Strength -] Aspirin 81 mg PO DAILY 10/22/18 Ferrous Sulfate 325 mg PO BID 10/22/18 Furosemide [Lasix] 40 mg PO DAILY 10/22/18 Gabapentin 300 mg PO HS 10/22/18 Levothyroxine Sodium [Levo-T] 50 mcg PO DAILY 10/22/18 Loratadine 10 mg PO DAILY PRN 10/22/18 Mirabegron [Myrbetriq] 25 mg PO DAILY 10/22/18 Omeprazole 40 mg PO AM 10/22/18 Simethicone 180 mg PO TID 10/22/18 Tamsulosin HCl 0.4 mg PO DAILY 10/22/18 Amelia-3 Acid Ethyl Esters [Lovaza 1,000 mg PO DAILY 10/23/18 -] Ciprofloxacin [Cipro -] 500 mg PO Q12H #6 tablet 10/24/18 Current Medications Acetaminophen (Tylenol -) 1,000 mg PO BID [facility] Last Admin: 10/28/18 21:37 Dose: 1,000 mg Ferrous Sulfate (Feosol -) 325 mg PO BID [facility] Last Admin: 10/28/18 21:37 Dose: 325 mg Furosemide (Lasix -) 40 mg PO DAILY [facility] Last Admin: 10/28/18 10:26 Dose: 40 mg Gabapentin (Neurontin -) 300 mg PO HS [facility] Last Admin: 10/28/18 21:37 Dose: 300 mg Levothyroxine Sodium (Synthroid -) 50 mcg PO DAILY@0700 [facility] Last Admin: 10/29/18 06:16 Dose: 50 mcg Loratadine (Claritin -) 10 mg PO DAILY PRN PRN Reason: ALLERGIES Non-Formulary Medication (Mirabegron [Myrbetriq]) 25 mg PO DAILY [facility] Pantoprazole Sodium (Protonix -) 40 mg PO AM [facility] Last Admin: 10/29/18 06:16 Dose: 40 mg Simethicone (Mylicon -) 160 mg PO TID [facility] Last Admin: 10/29/18 06:16 Dose: 160 mg Tamsulosin HCl (Flomax -) 0.4 mg PO DAILY@0830 [facility] Last Admin: 10/28/18 08:44 Dose: 0.4 mg ASSESSMENT/PLAN: Pt is an 88 y.o. M w/ PMHx. of Prostate Cancer (diagnosed [id number]) treated w/ Seeds and Radiation ([facility], Dr Virgen), BPH, Asbestosis (retired [employer]) CHF, COPD, HTN, HLD, CKD, hypothyroidism, and basal cell carcinoma on back who presented to [facility] due to continued gross hematuria. #Gross Hematuria Urinalysis 3+ blood, also appearance of julianne blood in diaper and h/o clots in [place] Urology on board. Plan for cystoscopy on October 29, the day after completion of Abx. per discussion with Dr. Vega H/H 8.3/25.1, trend Pelvic/Bladder US: large post void residual CTAP performed at [facility] this month. " Bilateral chronic hydroureteronephrosis, moderate on the right and left, down to the level of the bladder. Right ureter markedly dilated measuring 2.6 cm in widest diameter. No stones appreciated." #MDR UTI Urine Culture 10/14/2018--> Morganella+ Completed Ertapenem 500mg (Day 01/03) ID Consult( Dr. Wolfe) appreciated UCx. positive for Morganella susceptible to Ertapenem #FEN No IVF, encourage PO intake Monitor Electrolytes Low Sodium Diet #DVT ppx: SCDs in light of gross hematuria #Dispo: Med-Surg Visit type - Emergency Visit Emergency Visit: Yes ED Registration Date: 10/22/18 Care time: The patient presented to the Emergency Department on the above date and was hospitalized for further evaluation of their emergent condition. - New Patient This patient is new to me today: No - Critical Care Critical Care patient: No - Discharge Referral [facility]erred to [facility] Med P.C.: No
[2018-10-28] MEDS: TAMSULOSIN HCL 0.4 MG CAP PO SCH (08:44)
[2018-10-28 08:51] LABS: HEMATOCRIT 25.7 % (35.4-49); HEMOGLOBIN 8.4 GM/dL (11.7-16.9); MCH 31.6 pg (25.7-33.7); MCHC 32.8 g/dl (32.0-35.9); MEAN CELL VOLUME 96.3 fl (80-96); MEAN PLT VOLUME 6.9 fl (7.5-11.1); PLATELET COUNT 437 K/MM3 (134-434); RBC 2.67 M/mm3 (4.00-5.60); WHITE BLOOD COUNT 7.5 K/mm3 (4.0-10.0)
[2018-10-28] MEDS: ERTAPENEM SODIUM 1 GM in SODIUM CHLORIDE 50 ML IVPB SCH (10:26)
[2018-10-28] MEDS: FERROUS SO4 325 MG TABLET (FP) PO SCH ×2 (10:26→21:37)
[2018-10-28] MEDS: ACETAMINOPHEN 500 MG TABLET (FP) PO SCH ×2 (10:26→21:37)
[2018-10-28] MEDS: FUROSEMIDE 40 MG TABLET (FP) PO SCH (10:26)
--- NOTE | 2018-10-28 13:16 | PN ---
Teaching Attending Note Name of Resident: Sander Xie ATTENDING PHYSICIAN STATEMENT I saw and evaluated the patient. I reviewed the resident's note and discussed the case with the resident. I agree with the resident's findings and plan as documented. SUBJECTIVE:passing less blood clots. denies CP, SOB, fever, chills, N/V/C/D OBJECTIVE: Last Vital Signs Temp Pulse Resp BP Pulse Ox 97.6 F 84 18 101/59 L 95 10/28/18 09:00 10/28/18 09:00 10/28/18 09:00 10/28/18 09:00 10/28/18 09:00 General NAD abdomen soft NT/ND ASSESSMENT AND PLAN: 88 year old male with Prostate Cancer s/p RTx with Seeds, BPH, GERD, Asbestosis , COPD, HTN, HLD, Hypothyroidism, BCC on Back, CHF, urinary incontinence, presented with 1 month history of gross hematuria. 1. Acute on Chronic Blood Loss Anemia- secondary to Hematuria. cont to pass blood clots. Hgb remains stable. plan for cystoscopy tomorrow. urology on board 2. MDR Morganella UTI- only sensitive to IV medications.on ERtapenem day 7 of 7. can d/c after today 3. COPD- no signs of exacerbation 4. HTN- does not appear to have HTN as been normotensive off medication and did not arrive on medications 5. CHF- euvolemic. cont home medications 6. Hypothyroidism - continue Levothyroxine. 7. GERD - Continue PPI 8. DVT Px - SCDs (no Heparin given Hematuria). 9. DNR/DNI.
--- NOTE | 2018-10-28 13:34 | PN ---
Progress Note, Physician History of Present Illness: patient still with hematuria clinically stable - Current Medication List Current Medications: Active Medications Acetaminophen (Tylenol -) 1,000 mg PO BID [facility] Last Admin: 10/28/18 10:26 Dose: 1,000 mg Ferrous Sulfate (Feosol -) 325 mg PO BID [facility] Last Admin: 10/28/18 10:26 Dose: 325 mg Furosemide (Lasix -) 40 mg PO DAILY [facility] Last Admin: 10/28/18 10:26 Dose: 40 mg Gabapentin (Neurontin -) 300 mg PO HS [facility] Last Admin: 10/27/18 21:07 Dose: 300 mg Ertapenem 1 gm/ Sodium (Chloride) 50 mls @ 100 mls/hr IVPB DAILY [facility] Last Admin: 10/28/18 10:26 Dose: 100 mls/hr Levothyroxine Sodium (Synthroid -) 50 mcg PO DAILY@0700 [facility] Last Admin: 10/28/18 06:02 Dose: 50 mcg Loratadine (Claritin -) 10 mg PO DAILY PRN PRN Reason: ALLERGIES Non-Formulary Medication (Mirabegron [Myrbetriq]) 25 mg PO DAILY [facility] Pantoprazole Sodium (Protonix -) 40 mg PO AM [facility] Last Admin: 10/28/18 06:03 Dose: 40 mg Simethicone (Mylicon -) 160 mg PO TID [facility] Last Admin: 10/28/18 05:53 Dose: 160 mg Tamsulosin HCl (Flomax -) 0.4 mg PO DAILY@0830 [facility] Last Admin: 10/28/18 08:44 Dose: 0.4 mg - Objective Vital Signs: Vital Signs Temperature 97.6 F 10/28/18 09:00 Pulse Rate 84 10/28/18 09:00 Respiratory Rate 18 10/28/18 09:00 Blood Pressure 101/59 L 10/28/18 09:00 O2 Sat by Pulse Oximetry (%) 95 10/28/18 09:00 Constitutional: Yes: No Distress, Calm Cardiovascular: Yes: Regular Rate and Rhythm Respiratory: Yes: Regular, CTA Bilaterally Gastrointestinal: Yes: Normal Bowel Sounds, Soft Musculoskeletal: Yes: WNL Extremities: Yes: WNL Neurological: Yes: Alert, Oriented Labs: CBC, BMP 10/28/18 08:14 10/24/18 10:15 INR, PTT INR 1.18 (0.83-1.09) H 10/23/18 06:30 Assessment/Plan Problem List - Problems (1) Hemorrhagic cystitis Code(s): N30.91 - CYSTITIS, UNSPECIFIED WITH HEMATURIA Assessment/Plan Complicated MDR Morganella bacteriuria/ UTI Persistent Hematuria hydroureter/hydronephrosis Hx of Prostate CA s/p seed implant BPH CHF CKD COPD continue abx rest as per the team monitor clots and h and h
[2018-10-28] MEDS: GABAPENTIN 300 MG CAPSULE (FP) PO SCH (21:37)
[2018-10-29] MEDS: SIMETHICONE 80 MG TAB.CHEW (FP) PO SCH ×3 (06:16→21:31)
[2018-10-29] MEDS: LEVOTHYROXINE NA 50 MCG TABLET (FP) PO SCH (06:16)
[2018-10-29] MEDS: PANTOPRAZOLE 40 MG TABLET (FP) PO SCH (06:16)
[2018-10-29 07:40] LABS: HEMATOCRIT 25.8 % (35.4-49); HEMOGLOBIN 8.5 GM/dL (11.7-16.9); MCH 31.6 pg (25.7-33.7); MEAN CELL VOLUME 95.6 fl (80-96); MEAN PLT VOLUME 6.8 fl (7.5-11.1); PLATELET COUNT 430 K/MM3 (134-434); RBC 2.69 M/mm3 (4.00-5.60); RDW 17.6 % (11.9-15.9); WHITE BLOOD COUNT 6.7 K/mm3 (4.0-10.0)
[2018-10-29 07:49] LABS: INR 1.13 (0.83-1.09); PROTHROMBIN TIME (PATIENT) 13.3 SEC (9.7-13.0)
[2018-10-29 07:59] LABS: ANION GAP 9 MMOL/L (8-16); BLOOD UREA NITROGEN 24 mg/dL (7-18); CALCIUM 8.4 mg/dL (8.5-10.1); CHLORIDE 100 mmol/L (98-107); CO2 29 mmol/L (21-32); CREATININE 1.1 mg/dL (0.55-1.3); GLUCOSE,RANDOM 87 mg/dL (74-106); MAGNESIUM 2.4 mg/dL (1.8-2.4); PHOSPHOROUS 4.3 mg/dL (2.5-4.9); POTASSIUM 4.2 mmol/L (3.5-5.1); SODIUM 137 mmol/L (136-145)
[2018-10-29] MEDS: TAMSULOSIN HCL 0.4 MG CAP PO SCH (08:27)
[2018-10-29] MEDS ORDERED: ERTAPENEM SODIUM 1 GM VIAL ONE (09:28)
[2018-10-29] MEDS ORDERED: ONDANSETRON 4 MG/2 ML VIAL IVPUSH PRN ×2 (09:31→10:48)
[2018-10-29] MEDS ORDERED: PROPOFOL 20 ML ONE (09:37)
[2018-10-29] MEDS ORDERED: ERTAPENEM SODIUM 1 GM VIAL IVPB ONE (09:40)
[2018-10-29] MEDS ORDERED: LACTATED RINGERS SOLUTION 1,000 ML IV SCH ×2 (09:45→11:45)
[2018-10-29] MEDS: FERROUS SO4 325 MG TABLET (FP) PO SCH ×2 (10:12→21:31)
[2018-10-29] MEDS: FUROSEMIDE 40 MG TABLET (FP) PO SCH (10:13)
[2018-10-29] MEDS: ACETAMINOPHEN 500 MG TABLET (FP) PO SCH ×2 (10:13→21:31)
--- NOTE | 2018-10-29 10:20 | OP ---
Operative Note - Note: Operative Date: 10/29/18 Pre-Operative Diagnosis: hematuria Operation: cysto/evac clots/fulg bleeding/dilation stricture Post-Operative Diagnosis: Same as Pre-op Surgeon: Diaz Bell Anesthesia: General Operative Report Dictated: Yes
--- NOTE | 2018-10-29 10:43 | PN ---
Physical Exam: SUBJECTIVE: Patient seen and examined. Pt. NPO after midnight and for OR in AM. Pt. tolerated dinner ok. Passing red urine with some clots overnight. OBJECTIVE: Vital Signs Period Temp Pulse Resp BP Sys/Mathis Pulse Ox Last 24 Hr 97.5 F-98.1 F 79-87 18-20 99-116/56-59 94-98 GENERAL: The patient is awake, alert, and fully oriented, in no acute distress. HEAD: Normal with no signs of trauma. EYES: Sclera anicteric, conjunctiva clear. ENT: Ears normal, nares patent,moist mucous membranes. LUNGS: Breath sounds equal, clear to auscultation bilaterally, no wheezes, no crackles, no accessory muscle use. HEART: Regular rate and rhythm, S1, S2 without murmur ABDOMEN: Soft, nontender, nondistended, normoactive bowel sounds, no guarding, no rebound EXTREMITIES: 2+ radial pulses, warm, no calf tenderness, well-perfused, no edema. NEUROLOGICAL: Normal speech, gait not observed. PSYCH: Normal mood, normal affect. SKIN: Warm, dry, normal turgor, no rashes or lesions noted Laboratory Results - last 24 hr 10/29/18 10/29/18 10/29/18 06:45 06:45 06:45 WBC 6.7 RBC 2.69 L Hgb 8.5 L Hct 25.8 L MCV 95.6 MCH 31.6 MCHC 33.0 RDW 17.6 H Plt Count 430 MPV 6.8 L PT with INR 13.30 H INR 1.13 H Sodium 137 Potassium 4.2 Chloride 100 Carbon Dioxide 29 Anion Gap 9 BUN 24 H Creatinine 1.1 Creat Clearance w eGFR 63.47 Random Glucose 87 Calcium 8.4 L Phosphorus 4.3 Magnesium 2.4 Active Medications Home Medications Medication Instructions Recorded Acetaminophen [Tylenol 1,000 mg PO BID 10/22/18 .Extra-Strength -] Aspirin 81 mg PO DAILY 10/22/18 Ferrous Sulfate 325 mg PO BID 10/22/18 Furosemide [Lasix] 40 mg PO DAILY 10/22/18 Gabapentin 300 mg PO HS 10/22/18 Levothyroxine Sodium [Levo-T] 50 mcg PO DAILY 10/22/18 Loratadine 10 mg PO DAILY PRN 10/22/18 Mirabegron [Myrbetriq] 25 mg PO DAILY 10/22/18 Omeprazole 40 mg PO AM 10/22/18 Simethicone 180 mg PO TID 10/22/18 Tamsulosin HCl 0.4 mg PO DAILY 10/22/18 Gaston-3 Acid Ethyl Esters [Lovaza 1,000 mg PO DAILY 10/23/18 -] Ciprofloxacin [Cipro -] 500 mg PO Q12H #6 tablet 10/24/18 Current Medications Acetaminophen (Tylenol -) 1,000 mg PO BID [facility] Ferrous Sulfate (Feosol -) 325 mg PO BID [facility] Furosemide (Lasix -) 40 mg PO DAILY [facility] Gabapentin (Neurontin -) 300 mg PO HS [facility] Lactated Ringer's (Lactated Ringers Solution) 1,000 mls @ 75 mls/hr IV ASDIR [facility] Levothyroxine Sodium (Synthroid -) 50 mcg PO DAILY@0700 [facility] Loratadine (Claritin -) 10 mg PO DAILY PRN PRN Reason: ALLERGIES Non-Formulary Medication (Mirabegron [Myrbetriq]) 25 mg PO DAILY [facility] Pantoprazole Sodium (Protonix -) 40 mg PO AM [facility] Simethicone (Mylicon -) 160 mg PO TID [facility] Tamsulosin HCl (Flomax -) 0.4 mg PO DAILY@0830 [facility] ASSESSMENT/PLAN: Pt is an 88 y.o. M w/ PMHx. of Prostate Cancer (diagnosed [id number]) treated w/ Seeds and Radiation ([facility], Dr Virgen), BPH, Asbestosis (retired [place]) CHF, COPD, HTN, HLD, CKD, hypothyroidism, and basal cell carcinoma on back who presented to [facility] due to continued gross hematuria. #Gross Hematuria POD #0--> Pt. now has Linder draining kenya gold colored urine. Urinalysis 3+ blood, also appearance of julianne blood in diaper and h/o clots in [place] Urology consult appreciated, Cystoscopy completed on October 29, the day after completion of Abx. per discussion with Dr. Vega H/H 8.09/21.1, trend Pelvic/Bladder US: large post void residual CTAP performed at [facility] this month. " Bilateral chronic hydroureteronephrosis, moderate on the right and left, down to the level of the bladder. Right ureter markedly dilated measuring 2.6 cm in widest diameter. No stones appreciated." #MDR UTI Urine Culture 10/14/2018--> Morganella + Completed Ertapenem 500mg (Day 01/03) ID Consult (Dr. Wolfe) appreciated UCx. positive for Morganella susceptible to Ertapenem #FEN No IVF, encourage PO intake Monitor Electrolytes Low Sodium Diet #DVT ppx: SCDs in light of gross hematuria #Dispo: D/C planning
[2018-10-29] MEDS ORDERED: LORATADINE 10 MG TABLET PO PRN (10:48)
--- NOTE | 2018-10-29 12:16 | OP ---
DATE OF OPERATION: DATE OF DICTATION: 10/29/2018 PREOPERATIVE DIAGNOSIS: Gross hematuria. POSTOPERATIVE DIAGNOSIS: Gross hematuria. PROCEDURE: Cystoscopy, evacuation of clots, fulguration of bleeding, and dilation of urethral stricture. SURGEON: Aneta Michelle MD INDICATION: Patient is an 88-year-old male with recent persistent gross hematuria despite resolution of UTI. He was taken to the OR for cystoscopy and indicated procedures. DESCRIPTION OF PROCEDURE: Cystoscope was inserted into the urethra without difficulty. Anterior urethra was normal. 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 The scope was then inserted into the bladder. There were multiple clots noted in the bladder. At this point, then, with the stricture dilated, the 22-sheath cystoscope was then removed, and a 26-sheath resectoscope was inserted. Then, the clots were all evacuated with the Leap.it evacuator. There was bleeding from the posterior bladder wall, and this was fulgurated. There was no evidence of any bladder tumors. Bilateral ureteral orifices were seen in their normal anatomic position. Resectoscope was then removed, and a 22-Afghan Linder was then placed to straight drainage. [place]-tinged urine was retrieved. Patient was awoken from anesthesia and transferred to recovery room in stable condition. There were no complications. No blood loss. ANETA MICHELLE M.D. [id number]
--- NOTE | 2018-10-29 12:22 | PN ---
Progress Note, Physician History of Present Illness: patient doing well post op stable - Current Medication List Current Medications: Active Medications Acetaminophen (Tylenol -) 1,000 mg PO BID [facility] Ferrous Sulfate (Feosol -) 325 mg PO BID [facility] Furosemide (Lasix -) 40 mg PO DAILY [facility] Gabapentin (Neurontin -) 300 mg PO HS [facility] Lactated Ringer's (Lactated Ringers Solution) 1,000 mls @ 75 mls/hr IV ASDIR [facility] Levothyroxine Sodium (Synthroid -) 50 mcg PO DAILY@0700 [facility] Loratadine (Claritin -) 10 mg PO DAILY PRN PRN Reason: ALLERGIES Non-Formulary Medication (Mirabegron [Myrbetriq]) 25 mg PO DAILY [facility] Pantoprazole Sodium (Protonix -) 40 mg PO AM [facility] Simethicone (Mylicon -) 160 mg PO TID [facility] Tamsulosin HCl (Flomax -) 0.4 mg PO DAILY@0830 [facility] - Objective Vital Signs: Vital Signs Temperature 98.0 F 10/29/18 11:33 Pulse Rate 88 10/29/18 11:33 Respiratory Rate 20 10/29/18 11:33 Blood Pressure 101/69 10/29/18 11:33 O2 Sat by Pulse Oximetry (%) 92 L 10/29/18 11:33 Constitutional: Yes: No Distress, Calm Cardiovascular: Yes: S1, S2 Respiratory: Yes: Regular, CTA Bilaterally Gastrointestinal: Yes: Normal Bowel Sounds, Soft Genitourinary: Yes: Hematuria Musculoskeletal: Yes: WNL Extremities: Yes: WNL Neurological: Yes: Alert, Oriented Psychiatric: Yes: Alert, Oriented Labs: CBC, BMP 10/29/18 06:45 10/29/18 06:45 INR, PTT INR 1.13 (0.83-1.09) H 10/29/18 06:45 Assessment/Plan Problem List - Problems (1) Hemorrhagic cystitis Code(s): N30.91 - CYSTITIS, UNSPECIFIED WITH HEMATURIA Assessment/Plan Complicated MDR Morganella bacteriuria/ UTI Persistent Hematuria hydroureter/hydronephrosis Hx of Prostate CA s/p seed implant BPH CHF CKD COPD plan continue current mgmt await for operative report
--- NOTE | 2018-10-29 14:51 | PN ---
Teaching Attending Note Name of Resident: Sander Xie ATTENDING PHYSICIAN STATEMENT I saw and evaluated the patient. I reviewed the resident's note and discussed the case with the resident. I agree with the resident's findings and plan as documented. SUBJECTIVE:conitnues to pass blood clots. denies Cp, SOB, fever, chills, N/V/C/D OBJECTIVE: Last Vital Signs Temp Pulse Resp BP Pulse Ox 98.0 F 88 20 101/69 92 L 10/29/18 11:33 10/29/18 11:33 10/29/18 11:33 10/29/18 11:33 10/29/18 11:33 General NAD abdomen soft NT/ND ASSESSMENT AND PLAN: 88 year old male with Prostate Cancer s/p RTx with Seeds, BPH, GERD, Asbestosis , COPD, HTN, HLD, Hypothyroidism, BCC on Back, CHF, urinary incontinence, presented with 1 month history of gross hematuria. 1. Acute on Chronic Blood Loss Anemia- secondary to Hematuria. cont to pass blood clots. Hgb remains stable. plan for cystoscopy today. further recommendations per urology. urology on board 2. MDR Morganella UTI- only sensitive to IV medications.on completed 7 day course of ertapenem 3. COPD- no signs of exacerbation 4. HTN- does not appear to have HTN as been normotensive off medication and did not arrive on medications 5. CHF- euvolemic. cont home medications 6. Hypothyroidism - continue Levothyroxine. 7. GERD - Continue PPI 8. DVT Px - SCDs (no Heparin given Hematuria). 9. DNR/DNI.
[2018-10-29] MEDS ORDERED: ACETAMINOPHEN 325 MG TABLET (FP) PO PRN (18:18)
[2018-10-29] MEDS ORDERED: ACETAMINOPHEN 325 MG TABLET (FP) PO ONE (18:20)
[2018-10-29] MEDS ORDERED: GABAPENTIN 300 MG CAPSULE (FP) PO SCH (22:00)
[2018-10-30] MEDS: SIMETHICONE 80 MG TAB.CHEW (FP) PO SCH ×2 (05:39→13:19)
[2018-10-30] MEDS ORDERED: LEVOTHYROXINE NA 50 MCG TABLET (FP) PO SCH (07:00)
[2018-10-30] MEDS ORDERED: PANTOPRAZOLE 40 MG TABLET (FP) PO SCH (07:00)
[2018-10-30 07:31] LABS: HEMATOCRIT 24.7 % (35.4-49); HEMOGLOBIN 8.1 GM/dL (11.7-16.9); MCH 31.9 pg (25.7-33.7); MEAN CELL VOLUME 96.7 fl (80-96); MEAN PLT VOLUME 6.8 fl (7.5-11.1); PLATELET COUNT 403 K/MM3 (134-434); RBC 2.55 M/mm3 (4.00-5.60); RDW 17.3 % (11.9-15.9); WHITE BLOOD COUNT 6.5 K/mm3 (4.0-10.0)
[2018-10-30] MEDS ORDERED: TAMSULOSIN HCL 0.4 MG CAP PO SCH (08:30)
[2018-10-30] MEDS: FERROUS SO4 325 MG TABLET (FP) PO SCH (09:19)
[2018-10-30] MEDS: ACETAMINOPHEN 500 MG TABLET (FP) PO SCH (09:19)
[2018-10-30] MEDS ORDERED: FUROSEMIDE 40 MG TABLET (FP) PO SCH (10:00)
[2018-10-30] MEDS ORDERED: PATIENT'S OWN MEDICATION (NON-FORMULARY) (Mirabegron [Myrbetriq] 25 MG) PO SCH (10:00)
--- NOTE | 2018-10-30 10:07 | PN ---
Progress Note, Physician History of Present Illness: patient stable no new issues urine looks clean no hematuria - Current Medication List Current Medications: Active Medications Acetaminophen (Tylenol -) 1,000 mg PO BID [facility] Last Admin: 10/30/18 09:19 Dose: 1,000 mg Ferrous Sulfate (Feosol -) 325 mg PO BID [facility] Last Admin: 10/30/18 09:19 Dose: 325 mg Furosemide (Lasix -) 40 mg PO DAILY [facility] Last Admin: 10/30/18 09:19 Dose: 40 mg Gabapentin (Neurontin -) 300 mg PO HS [facility] Last Admin: 10/29/18 21:31 Dose: 300 mg Levothyroxine Sodium (Synthroid -) 50 mcg PO DAILY@0700 [facility] Last Admin: 10/30/18 06:05 Dose: 50 mcg Loratadine (Claritin -) 10 mg PO DAILY PRN PRN Reason: ALLERGIES Non-Formulary Medication (Mirabegron [Myrbetriq]) 25 mg PO DAILY [facility] Pantoprazole Sodium (Protonix -) 40 mg PO AM [facility] Last Admin: 10/30/18 06:05 Dose: 40 mg Simethicone (Mylicon -) 160 mg PO TID [facility] Last Admin: 10/30/18 05:39 Dose: 160 mg Tamsulosin HCl (Flomax -) 0.4 mg PO DAILY@0830 [facility] Last Admin: 10/30/18 07:50 Dose: 0.4 mg - Objective Vital Signs: Vital Signs Temperature 97.9 F 10/30/18 06:22 Pulse Rate 83 10/30/18 06:22 Respiratory Rate 20 10/30/18 06:22 Blood Pressure 107/55 L 10/30/18 06:22 O2 Sat by Pulse Oximetry (%) 91 L 10/29/18 21:00 Constitutional: Yes: No Distress, Calm Cardiovascular: Yes: Regular Rate and Rhythm Respiratory: Yes: Regular, CTA Bilaterally Gastrointestinal: Yes: Normal Bowel Sounds, Soft Genitourinary: Yes: Linder Present Musculoskeletal: Yes: WNL Extremities: Yes: WNL Neurological: Yes: Alert, Oriented Labs: CBC, BMP 10/30/18 07:00 10/29/18 06:45 INR, PTT INR 1.13 (0.83-1.09) H 10/29/18 06:45 Assessment/Plan Problem List - Problems (1) Hemorrhagic cystitis Code(s): N30.91 - CYSTITIS, UNSPECIFIED WITH HEMATURIA Assessment/Plan Complicated MDR Morganella bacteriuria/ UTI Persistent Hematuria hydroureter/hydronephrosis Hx of Prostate CA s/p seed implant BPH CHF CKD COPD plan continue current mgmt stable
--- NOTE | 2018-10-30 10:42 | PN ---
Progress Note (short form) - Note Progress Note: Anesthesiology Post-op POD#1 s/p TURBT under GA. Pt. is sleeping comfortably in bed. VSS. No acute issues. 88 y.o. man with stable post-operative course. Continue management as per primary team.
--- NOTE | 2018-10-30 12:56 | PN ---
Teaching Attending Note Name of Resident: Sander Xie ATTENDING PHYSICIAN STATEMENT I saw and evaluated the patient. I reviewed the resident's note and discussed the case with the resident. I agree with the resident's findings and plan as documented. SUBJECTIVE:asymptomatic. no more blood clots. draining clear urine. denies Cp, SOB, fever, chills OBJECTIVE: Last Vital Signs Temp Pulse Resp BP Pulse Ox 97.6 F 80 20 103/55 L 95 10/30/18 10:00 10/30/18 10:00 10/30/18 10:00 10/30/18 10:00 10/30/18 09:00 General NAD abdomen soft NT/ND ASSESSMENT AND PLAN: 88 year old male with Prostate Cancer s/p RTx with Seeds, BPH, GERD, Asbestosis , COPD, HTN, HLD, Hypothyroidism, BCC on Back, CHF, urinary incontinence, presented with 1 month history of gross hematuria. 1. Acute on Chronic Blood Loss Anemia- secondary to Hematuria. s/p cystoccopy with clearing of clots and correction of stricutre. sims in place. will repeat CBC to ensure staying stable. urology follow up outpatient. 2. MDR Morganella UTI- only sensitive to IV medications.on completed 7 day course of ertapenem 3. COPD- no signs of exacerbation 4. HTN- does not appear to have HTN as been normotensive off medication and did not arrive on medications 5. CHF- euvolemic. cont home medications 6. Hypothyroidism - continue Levothyroxine. 7. GERD - Continue PPI 8. DVT Px - SCDs (no Heparin given Hematuria). 9. DNR/DNI. d/c home pending repeat hgb
[2018-10-30 13:04] LABS: HEMATOCRIT 26.5 % (35.4-49); HEMOGLOBIN 8.5 GM/dL (11.7-16.9); MCH 31.3 pg (25.7-33.7); MCHC 32.3 g/dl (32.0-35.9); MEAN CELL VOLUME 97.2 fl (80-96); MEAN PLT VOLUME 6.7 fl (7.5-11.1); PLATELET COUNT 441 K/MM3 (134-434); RBC 2.73 M/mm3 (4.00-5.60); RDW 17.8 % (11.9-15.9); WHITE BLOOD COUNT 6.4 K/mm3 (4.0-10.0)
[2018-10-30 13:48] VITALS: BP 107/52; PULSE 88; TEMP 98
--- NOTE | 2018-10-30 14:37 | DS ---
Physical Exam: SUBJECTIVE: Patient seen and examined OBJECTIVE: Vital Signs Period Temp Pulse Resp BP Sys/Mathis Pulse Ox Last 24 Hr 97.5 F-98.7 F 80-95 20-20 98-122/52-67 91-95 PHYSICAL EXAM GENERAL: The patient is awake, alert, and fully oriented, in no acute distress. HEAD: Normal with no signs of trauma. EYES: PERRL, extraocular movements intact, sclera anicteric, conjunctiva clear. ENT: Ears normal, nares patent, oropharynx clear without exudates, moist mucous membranes. NECK: Trachea midline, full range of motion, supple. LUNGS: Breath sounds equal, clear to auscultation bilaterally, no wheezes, no crackles, no accessory muscle use. HEART: Regular rate and rhythm, S1, S2 without murmur, rub or gallop. ABDOMEN: Soft, nontender, nondistended, normoactive bowel sounds, no guarding, no rebound, no hepatosplenomegaly, no masses. EXTREMITIES: 2+ pulses, warm, well-perfused, no edema. NEUROLOGICAL: Cranial nerves II through XII grossly intact. Normal speech, gait not observed. PSYCH: Normal mood, normal affect. SKIN: Warm, dry, normal turgor, no rashes or lesions noted. LABS Laboratory Results - last 24 hr 10/30/18 10/30/18 07:00 12:25 WBC 6.5 6.4 RBC 2.55 L 2.73 L Hgb 8.1 L 8.5 L Hct 24.7 L 26.5 L MCV 96.7 H 97.2 H MCH 31.9 31.3 MCHC 33.0 32.3 RDW 17.3 H 17.8 H Plt Count 403 441 H MPV 6.8 L 6.7 L HOSPITAL COURSE: Date of Admission:10/22/18 Date of Discharge: 10/30/18 Discharge Summary Reason For Visit: MULTIPLE DRUG RESUSTANT ORGANISM MDRO Current Active Problems Hemorrhagic cystitis (Acute) Condition: Improved - Instructions Diet, Activity, Other Instructions: You were admitted to the hospital for the treatment of hematuria and urinary tract infection. Your blood counts are stable. Medical recommendations: Please take ferrous sulfate 325mg twice a day Referrals: Please see your primary care physician within 1 week of discharge Please make an appointment with the urologist within 1 week of discharge If you experience any fevers, chills, nausea, vomiting, diarrhea, severe weakness, chest pain or shortness of breath Referrals: Diaz eBll MD [Staff Physician] - 1 Week Disposition: SNF FACILITY - Home Medications Comprehensive Discharge Medication List: Ambulatory Orders Acetaminophen [Tylenol .Extra-Strength -] 1,000 mg PO BID 10/22/18 Aspirin 81 mg PO DAILY 10/22/18 Ferrous Sulfate 325 mg PO BID 10/22/18 Furosemide [Lasix] 40 mg PO DAILY 10/22/18 Gabapentin 300 mg PO HS 10/22/18 Levothyroxine Sodium [Levo-T] 50 mcg PO DAILY 10/22/18 Loratadine 10 mg PO DAILY PRN 10/22/18 Mirabegron [Myrbetriq] 25 mg PO DAILY 10/22/18 Omeprazole 40 mg PO AM 10/22/18 Simethicone 180 mg PO TID 10/22/18 Tamsulosin HCl 0.4 mg PO DAILY 10/22/18 [place]-3 Acid Ethyl Esters [Lovaza -] 1,000 mg PO DAILY 10/23/18 - Discharge Referral Referred to [facility] No
== END 2018-10-30 19:30 | DRG 690 ==
LOC: JER 15:20 → JERBED 19:17 → J7W 10-23 02:36
PROVIDERS: ADMIT Internal Medicine; ATTEND Internal Medicine
PROC: 0T7D8ZZ Dilation of Urethra, Via Natural or Artificial Opening Endoscopic (ICD-10-PCS; 2018-10-29)
PROC: 0TCB8ZZ Extirpation of Matter from Bladder, Via Natural or Artificial Opening Endoscopic (ICD-10-PCS; 2018-10-29)
PROC: 0T9B8ZZ Drainage of Bladder, Via Natural or Artificial Opening Endoscopic (ICD-10-PCS; principal; 2018-10-29 09:30)
DX: N30.91 Cystitis, unspecified with hematuria (principal); I13.0 Hypertensive heart and chronic kidney disease with heart failure and stage 1 through stage 4 chronic kidney disease, or unspecified chronic kidney disease; D62 Acute posthemorrhagic anemia; N13.6 Pyonephrosis; E46 Unspecified protein-calorie malnutrition; N18.9 Chronic kidney disease, unspecified; E03.9 Hypothyroidism, unspecified; E78.5 Hyperlipidemia, unspecified; D64.9 Anemia, unspecified; N40.0 Benign prostatic hyperplasia without lower urinary tract symptoms; I50.9 Heart failure, unspecified; R32 Unspecified urinary incontinence; K21.9 Gastro-esophageal reflux disease without esophagitis; E83.42 Hypomagnesemia; N35.919 Unspecified urethral stricture, male, unspecified site; Z85.46 Personal history of malignant neoplasm of prostate; Z77.090 Contact with and (suspected) exposure to asbestos; Z88.0 Allergy status to penicillin; E88.09 Other disorders of plasma-protein metabolism, not elsewhere classified; Z68.23 Body mass index [BMI] 23.0-23.9, adult; Z66 Do not resuscitate
CPT/HCPCS: 36415; 76856-TC; 80048; 80053; 81003; 82607; 82728; 82746; 82962; 83540; 83550; 83735; 84100; 85025; 85027; 85044; 85610; 85730; 86850; 86900; 86901; 87086; 87186; 93005; 93010; 94760; 99284-25